=== PATIENT | female | born 2000 | race Caucasian/White ===

== ENCOUNTER 2022-06-08 18:15 | Emergency (ER) | payer MEDICARE, MEDICAID, SELFPAY ==
[2022-06-08 18:58] VITALS: BP 108/60; PULSE 73; RESP 18; TEMP 36.8; O2SAT 99; BMI 31.2
--- OUTSIDE RECORDS SUMMARY | 2022-06-08 21:38 | XMS_ITS | Continuity of Care Document ---
:2002 Author Organization [facility] Address [address] [place] [address]- Care Team Providers Name Role Phone Jerica Romano MD Primary Care Physician Encounter [facility] [place] [place] Date(s): 06/22/20 - 07/22/20 [facility] [address] [place] [address]- Allergies, Adverse Reactions, Alerts Substance Reaction Severity Status amoxicillin diarrhea Active penicillin Active Bee Stings1 Unknown Active Cats Active 1per pt and Mom it is not anaphalactic reaction Medications Aerochamber w/Mask (Large) See Instructions, # 2 each, Maintenance, use with albuterol inhaler, 11/19/18 19:50:11 EDT, Compound Start Date: 11/19/18 Status: Orderedalbuterol CFC free 90 mcg/inh inhalation aerosol 2, puffs, Inhalation, 4 times a day, PRN, May use 2- 6 puffs use with spacer chamber, # 2 each, Refills 0, Tot. Refills 0, Maintenance, 11/19/18 19:49:02 EDT, Aerosol, Print Requisition, Compound Start Date: 11/19/18 Status: OrderedClaritin 10 mg oral tablet 10 mg, 1, tablet, By Mouth, Daily, # 30 tablet, Refills 0, Tot. Refills 0, Maintenance, 12/21/18 13:30:38 EDT, Route to Pharmacy Electronically, [id number], [id number] Start Date: 12/21/18 Stop Date: 01/20/19 Status: Ordereddicyclomine 10 mg oral capsule 1 capsule = 10 mg, By Mouth, 2 times a day, # 60 capsule, 6 Refills, Maintenance, 04/01/20 11:10:00 EDT, Capsule, [id number], 155, cm, 11/18/19 13:05:00 EDT, Height, 102.6, kg, 11/18/19 13:05:00 EDT, Dry Weight Start Date: 04/01/20 Stop Date: 10/28/20 Status: OrderedDulcolax 5 mg oral enteric coated tablet 3 tablet = 15 mg, By Mouth, Once, # 4 tablet, 0 Refills, Soft Stop, 04/01/20 11:11:00 EDT, [facility]/pharmacy #[id number], 155, cm, 11/18/19 13:05:00 EDT, Height, 102.6, kg, 11/18/19 13:05:00 EDT, Dry Weight Start Date: 04/01/20 Status: OrderedFlovent 110 mcg Inhaler HFA 1, puffs, Inhalation, 2 times a day, per mom and pt, Refills 0, Maintenance, 08/29/19 13:13:00 EST, Inhaler Start Date: 08/29/19 Status: OrderedHydrOXYzine = 25 mg, By Mouth, 3 times a day, 0 Refills, Maintenance, 10/10/18 1:47:31 EST Start Date: 10/10/18 Status: Orderedlevothyroxine 125 mcg (0.125 mg) oral tablet 1 tablet = 125 mcg, By Mouth, Daily, daily in AM, 30 mins before eating/drinking, # 30 tablet, 11 Refills, Maintenance, 08/08/19 6:23:00 EST, Tablet, [facility]/pharmacy #[id number], 154.5, cm, 08/05/19 10:15:00 EST, Height, 100, kg, 08/05/19 10:15:00 EST, Dry Weight Start Date: 08/08/19 Status: Orderedmelatonin 3 mg oral tablet 2 tablet = 6 mg, By Mouth, Daily at bedtime, PRN for insomnia, # 60 tablet, 0 Refills, Maintenance, 05/24/18 18:59:44 EDT, Tablet Start Date: 05/24/18 Status: Orderedolanzapine 10 mg oral tablet 10 mg, 1, tablet, By Mouth, Daily, # 30 tablet, Refills 0, Maintenance, 04/04/19 16:06:12 EDT Start Date: 04/04/19 Status: Orderedomeprazole 40 mg oral enteric coated capsule 1 capsule = 40 mg, By Mouth, Daily, # 30 capsule, 4 Refills, Maintenance, 04/27/20 11:15:00 EDT, EC Capsule, [id number], 155, cm, 11/18/19 13:05:00 EDT, Height, 98.2, kg, 04/16/20 14:20:00 EDT,Dry Weight Start Date: 04/27/20 Status: OrderedPrilosec OTC = 40 mg, By Mouth, Daily, 0 Refills, Maintenance, 08/29/19 13:16:00 EST Start Date: 08/29/19 Status: Orderedtestosterone 25 mg/2.5 g (1%) transdermal gel See Instructions, 1.5 packet Topically Daily in AM; apply to clean, dry, intact skin; wash hands thoroughly after application, # 60 each, 6 Refills, Maintenance, 05/27/20 15:07:00 EDT, Gel, [id number], 155, cm, 11/18/19 13:05:00 EDT, Heigh... Start Date: 05/27/20 Status: OrderedTrazodone = 100 mg, By Mouth, Daily at bedtime, 0 Refills, Maintenance, 01/25/19 11:12:55 EDT Start Date: 01/25/19 Status: Ordered Problem List Condition Effective Dates Status Health Status Informant Abdominal pain(Confirmed) Active Acute depression(Confirmed) Active Attention deficit hyperactivity Active disorder, combined type(Confirmed) Autism spectrum disorder(Confirmed) Active Bipolar(Confirmed) Active Bulimia nervosa(Confirmed) Active Gender dysphoria in pediatric Active patient(Confirmed) H/O Hilda thyroiditis(Confirmed) Active Posttraumatic stress Active disorder(Confirmed) Rectal bleed(Confirmed) Active Suicidal intent(Confirmed) Active Transgender(Confirmed) Active Social History Social History Type Response Smoking Status Never (less than 100 in life time); Tobacco user in household: Yes entered on: 04/04/19 Sex Female
--- OUTSIDE RECORDS SUMMARY | 2022-06-08 21:38 | XMS_ITS | Continuity of Care Document ---
:2002 Author Organization [facility] Address [address] [place] [address]- Care Team Providers Name Role Phone Juan Antonio CAO, Jerica Underwood Primary Care Physician Encounter [facility] [place] Date(s): 04/05/22 - 05/05/22 [facility] [address] [place] [address]- Attending Physician: Sana Mena Admitting Physician: Sana Mena Referring Physician: Sana Mena Allergies, Adverse Reactions, Alerts Substance Reaction Severity Status clindamycin Active amoxicillin diarrhea Active penicillin Active Bee Stings1 Unknown Active Cats Active 1per pt and Mom it is not anaphalactic reaction Medications Abilify 2 mg oral tablet 2 mg, 1, tablet, By Mouth, Daily in AM, # 30 tablet, Refills 0, Tot. Refills 0, Maintenance, 03/29/22 8:41:00 EDT, Route to Pharmacy Electronically, [facility]/pharmacy #[id number], Partial fill upon patient request if the prescription is for a schedule II opioid... Start Date: 03/29/22 Status: Orderedacetaminophen 325 mg oral tablet 650 mg, By Mouth, Every 6 hours, PRN, /Headache, # 30 tablet, Refills 0, Tot. Refills 0, Maintenance, Pain , Mild, 03/29/22 8:41:00 EDT, Route to Pharmacy Electronically, [id number], Partial fill upon patient request if the prescription is for... Start Date: 03/29/22 Status: Orderedalbuterol CFC free 90 mcg/inh inhalation aerosol 2, puffs, Inhalation, 4 times a day, PRN, May use 2- 6 puffs use with spacer chamber, # 2 each, Refills 0, Tot. Refills 0, Maintenance, 03/29/22 8:57:00 EDT, Aerosol, Route to Pharmacy Electronically, [id number], [id number] [employer]... Start Date: 03/29/22 Status: OrdereddiphenhydrAMINE 25 mg oral tablet 1 tablet = 25 mg, By Mouth, Every 6 hours, PRN Anxiety, # 120 tablet, 0 Refills, Maintenance, 03/29/22 8:42:00 EDT, Tablet, [id number], Partial fill upon patient request if the prescription is for a schedule II opioid drug., 153, cm, 03/29/22... Start Date: 03/29/22 Status: Orderedlevothyroxine 125 mcg (0.125 mg) oral tablet 1 tablet = 125 mcg, By Mouth, Daily, daily in AM, 30 mins before eating/drinking, # 30 tablet, 11 Refills, Maintenance, 03/29/22 8:58:00 EDT, Tablet, [facility], 153, cm, 03/29/22 4:54:00 EDT, Height, 71.1, kg, 03/17/22 18:52:00 EDT, Dry Weight Start Date: 03/29/22 Status: OrderedLexapro 10 mg oral tablet 0.5 tablet = 5 mg, By Mouth, Daily, # 15 tablet, 0 Refills, Maintenance, 03/29/22 8:42:00 EDT, Tablet, [id number], Partial fill upon patient request if the prescription is for a schedule II opioid drug., 153, cm, 03/29/22 4:54:00 EDT, Height,... Start Date: 03/29/22 Status: Orderedlidocaine 5% topical film See Instructions, PRN Pain , Moderate, Topically Daily remove patches after 12 hours, # 30 patch, 0 Refills, Maintenance, 03/29/22 8:44:00 EDT, Patch, [id number], Partial fill upon patient request if the prescription is for a schedule II opio... Start Date: 03/29/22 Status: Orderedmelatonin 3 mg oral tablet 2 tablet = 6 mg, By Mouth, Daily at bedtime, PRN for insomnia, # 60 tablet, 0 Refills, Maintenance, 03/29/22 8:59:00 EDT, Tablet, [id number], Partial fill upon patient request if the prescription is for a schedule II opioid drug., 153, cm, .. Start Date: 03/29/22 Status: Ordered Problem List Condition Confirmation Course Effective Dates Status Health I nformant Status Abdominal pain Confirmed Active Acute depression Confirmed Active Attention deficit Confirmed Active hyperactivity disorder, combined type Autism spectrum Confirmed Active disorder Bipolar Confirmed Active Bulimia nervosa Confirmed Active Gender dysphoria in Confirmed Active pediatric patient H/O Hilda Confirmed Active thyroiditis Posttraumatic stress Confirmed Active disorder Rectal bleed Confirmed Active Suicidal intent Confirmed Active Transgender Confirmed Active Social History Social History Type Response Tobacco Interested in cessation: No. Yes, Other: patient reports use varies . Sex Female Patient Care team information PersonnelName: Juan Antonio CAO, Jerica Underwood Address: Address: [address] [place] [address] [facility] [place], [place] [address]
--- OUTSIDE RECORDS SUMMARY | 2022-06-08 21:38 | XMS_ITS | Continuity of Care Document ---
:2002 Author Organization [facility] Address [address] [place] [address]- Care Team Providers Name Role Phone Jerica Romano MD Primary Care Physician Encounter [facility] [place] Date(s): 04/16/20 - 04/23/20 [facility] [address] [place] [id number]- [facility] Attending Physician: Tabatha Lord DO Referring Physician: Jerica Romano MD Allergies, Adverse Reactions, Alerts Substance Reaction Severity [...] 12/21/18 13:30:38 EDT, Route to Pharmacy Electronically, [id number], [facility]/pharmacy #[id number] Start Date: 12/21/18 Stop Date: 01/20/19 Status: Ordereddicyclomine 10 mg oral capsule 1 capsule = 10 mg, By Mouth, 2 times a day, # 60 capsule, 6 Refills, Maintenance, 04/01/20 11:10:00 EDT, Capsule, [facility]/pharmacy #[id number], 155, cm, 11/18/19 13:05:00 EDT, Height, 102.6, kg, 11/18/19 13:05:00 EDT, Dry Weight Start Date: 04/01/20 Stop Date: 10/28/20 Status: OrderedDulcolax 5 mg oral enteric coated tablet 3 tablet = 15 mg, By Mouth, Once, # 4 tablet, 0 Refills, Soft Stop, 04/01/20 11:11:00 EDT, [facility]/pharmacy #[id number], 155, cm, 11/18/19 13:05:00 EDT, [...] 11 Refills, Maintenance, 08/08/19 6:23:00 EST, Tablet, [facility]/pharmacy #[id number], 154.5, cm, 08/05/19 10:15:00 EST, [...] mg, By Mouth, Daily, # 30 capsule, 0 Refills, Maintenance, 04/01/20 11:11:00 EDT, EC Capsule, [facility]/pharmacy #[id number], 155, cm, 11/18/19 13:05:00 EDT, Height, 102.6, kg, 11/18/19 13:05:00 EDT, Dry Weight Start Date: 04/01/20 Status: OrderedPrilosec OTC = 40 mg, By Mouth, Daily, 0 Refills, Maintenance, 08/29/19 13:16:00 EST Start Date: 08/29/19 Status: Orderedtestosterone 25 mg/2.5 g (1%) transdermal gel See Instructions, 1 packet Topically Daily in AM; apply to clean, dry, intact skin; wash hands thoroughly after application, # 30 each, 6 Refills, Maintenance, 04/16/20 16:18:00 EDT, Gel, [facility]/pharmacy #[id number], 155, cm, 11/18/19 13:05:00 EDT, Height,... Start Date: 04/16/20 Status: OrderedTrazodone = 100 mg, By Mouth, [...] bleed(Confirmed) Active Suicidal intent(Confirmed) Active Transgender(Confirmed) Active Vital Signs Most recent to oldest [Reference Range]: 1 Weight 98.2 kg (04/16/20 2:20 PM) Pulse Rate [55-90 bpm] 61 bpm (04/16/20 2:20 PM) Blood Pressure [71-110/30-71 mm Hg] 108/78 mm Hg (04/16/20 2:20 PM) Blood pressure sites Arm, right (04/16/20 2:20 PM) Dry Weight 98.2 kg (04/16/20 2:20 PM) Weight Obtained Via Standing scale (04/16/20 2:20 PM) Dry Weight Obtained Via Standing scale (04/16/20 2:20 PM) Social History Social History Type Response Smoking Status Never (less than 100 in life time); Tobacco user in household: Yes entered on: 04/04/19 Sex Female
--- OUTSIDE RECORDS SUMMARY | 2022-06-08 21:38 | XMS_ITS | Continuity of Care Document ---
:2002 Author Organization [facility] Address [address] [place] [address]- Care Team Providers Name Role Phone Jerica Romano MD Primary Care Physician Encounter [facility] [place] Date(s): 03/17/21 - 03/24/21 [facility] [address] [place] [address]- Encounter Diagnosis Asthma exacerbation (Discharge Diagnosis) - 03/18/21 Attending Physician: Jeremías Gonzalez DO Referring Physician: Jerica Romano MD Allergies, [...] 12/21/18 13:30:38 EDT, Route to Pharmacy Electronically, [id number], [facility]/pharmacy #[id number] Start Date: 12/21/18 Stop Date: 01/20/19 Status: Ordereddicyclomine 10 mg oral capsule 1 capsule, By Mouth, 2 times a day, # 60 capsule, 3 Refills, Maintenance, 03/22/21 9:51:00 EDT, [facility] STORE [id number], 154.5, cm, 03/17/21 15:37:00 EDT, Height, 97.3, kg, 12/21/20 16:20:00 EDT, Dry Weight Start Date: 03/22/21 Status: OrderedDulcolax 5 mg oral enteric coated tablet 3 tablet = 15 mg, By Mouth, Once, # 4 tablet, 0 Refills, Soft Stop, 04/01/20 11:11:00 EDT, [facility]/pharmacy #[id number], 155, cm, 11/18/19 13:05:00 EDT, Height, [...] eating/drinking, # 30 tablet, 11 Refills, Maintenance, 12/25/20 14:26:00 EDT, Tablet, [facility]/pharmacy #[id number], 154.5, cm, 12/21/20 16:20:00 EDT, Height, 97.3, kg, 12/21/20 16:20:00 EDT, Dry W... Start Date: 12/25/20 Status: Orderedmelatonin 3 mg oral tablet 2 [...] 14:20:00 EDT,Dry Weight Start Date: 04/27/20 Status: OrderedpredniSONE 10 mg oral tablet See Instructions, 6 tablet By Mouth for 2 days, 5 tabs for 2 days, 4 tabs for 2 days, 3 tabs for 2 days 2 tabs for 2 days one tab for 2 days. with food, # 42 tablet, 0 Refills, Maintenance, 03/17/21 16:26:00 EDT, [id number], Partial fill upo... Start Date: 03/17/21 Status: OrderedPrilosec OTC = 40 mg, By Mouth, Daily, 0 Refills, Maintenance, 08/29/19 13:16:00 EST Start Date: 08/29/19 Status: Orderedtestosterone 25 mg/2.5 g (1%) transdermal gel See Instructions, 2 packet Topically Daily in AM; apply to clean, dry, intact skin; wash hands thoroughly after application, # 60 each, 5 Refills, Maintenance, 12/25/20 14:24:00 EDT, Gel, [id number], 154.5, cm, 12/21/20 16:20:00 EDT, Heigh... Start Date: 12/25/20 Status: OrderedTrazodone = 100 mg, By Mouth, [...] bleed(Confirmed) Active Suicidal intent(Confirmed) Active Transgender(Confirmed) Active Diagnosis Diagnosis Type Effective Dates Health Clinical Infor [facility] Status Service Asthma exacerbation Discharge 03/18/21 Diagnosis Vital Signs Most recent to oldest [Reference Range]: 1 Height 154.5 cm (03/17/21 3:37 PM) Oxygen Saturation [94-100 %] 98 % (03/17/21 3:37 PM) Pulse Rate [55-90 bpm] 102 bpm *H* (03/17/21 3:37 PM) Blood Pressure [71-110/30-71 mm Hg] 120/85 mm Hg *H* (03/17/21 3:37 PM) Respiratory Rate [16-30 br/min] 20 br/min (03/17/21 3:37 PM) Temperature [96.8-100.4 DegF] 97.6 DegF (03/17/21 3:37 PM) Mode of Delivery (Oxygen) Room air (03/17/21 3:37 PM) Blood pressure sites Arm, right (03/17/21 3:37 PM) Temperature Route Temporal (03/17/21 3:37 PM) Social History Social History Type Response Smoking Status Never (less than 100 in life time); Tobacco user in household: Yes entered on: 04/04/19 Sex Female
--- OUTSIDE RECORDS SUMMARY | 2022-06-08 21:38 | XMS_ITS | Continuity of Care Document ---
:2002 Author Organization [facility] Address [address] [place] [address]- Care Team Providers Name Role Phone Jerica Romano MD Primary Care Physician Encounter [facility] [place] Date(s): 12/21/20 - 01/20/21 [facility] [address] [place] [address]- Attending Physician: Admtr, Sana Admitting Physician: Admtr, Ar8 Referring Physician: Admtr, Ar8 Allergies, Adverse Reactions, Alerts Substance Reaction Severity [...] 12/21/18 13:30:38 EDT, Route to Pharmacy Electronically, [id number], [facility]/pharmacy #[id number] Start Date: 12/21/18 Stop Date: 01/20/19 Status: Ordereddicyclomine 10 mg oral capsule 1 capsule = 10 mg, By Mouth, 2 times a day, # 60 capsule, 3 Refills, Maintenance, 11/04/20 7:52:00 EDT, Capsule, [facility]/pharmacy #[id number], 155, cm, 08/26/20 11:33:00 EST, Height, 101.4, kg, 08/26/20 11:38:00EST, Dry Weight Start Date: 11/04/20 Stop Date: 03/04/21 Status: OrderedDulcolax 5 mg oral enteric coated tablet 3 tablet = 15 mg, By Mouth, Once, # 4 tablet, 0 Refills, Soft Stop, 04/01/20 11:11:00 EDT, [facility]/pharmacy #[id number], 155, cm, 11/18/19 13:05:00 EDT, Height, [...] 11 Refills, Maintenance, 12/25/20 14:26:00 EDT, Tablet, [facility]/pharmacy #[id number], 154.5, cm, 12/21/20 16:20:00 EDT, Height, [...]
--- OUTSIDE RECORDS SUMMARY | 2022-06-08 21:38 | XMS_ITS | Continuity of Care Document ---
:2002 Author Organization [facility] Address [address] [place] [address]- Care Team Providers Name Role Phone Jerica Romano MD Primary Care Physician Encounter [facility] [place] [place] Date(s): 01/16/20 - 01/23/20 [facility] [address] [place] [address]- [facility] Attending Physician: Tabatha Lord DO Allergies, Adverse Reactions, Alerts Substance Reaction Severity [...] 12/21/18 13:30:38 EDT, Route to Pharmacy Electronically, [id number], [facility]/pharmacy #[id number] Start Date: 12/21/18 Stop Date: 01/20/19 Status: OrderedFlovent 110 mcg Inhaler HFA 1, puffs, Inhalation, 2 times a day, per mom and pt, Refills 0, Maintenance, 08/29/19 13:13:00 EST, Inhaler Start Date: 08/29/19 Status: OrderedHydrOXYzine = 25 mg, By Mouth, 3 times a day, 0 Refills, Maintenance, 10/10/18 1:47:31 EST Start Date: 10/10/18 Status: OrderedInderal 20 mg oral tablet See Instructions, per Mom this med just started not sure how many MG, but takes 3 times/day, Refills0, Maintenance, 08/29/19 13:14:00 EST, Instructions Replace Required Details Start Date: 08/29/19 Status: Orderedlevothyroxine 125 mcg (0.125 mg) oral tablet 1 tablet = 125 mcg, By Mouth, Daily, daily in AM, 30 mins before eating/drinking, # 30 tablet, 11 Refills, Maintenance, 08/08/19 6:23:00 EST, Tablet, [facility]/pharmacy #[id number], 154.5, cm, 08/05/19 10:15:00 EST, Height, [...] 04/04/19 16:06:12 EDT Start Date: 04/04/19 Status: OrderedPrilosec OTC = 40 mg, By Mouth, Daily, 0 Refills, Maintenance, 08/29/19 13:16:00 EST Start Date: 08/29/19 Status: Orderedtestosterone 25 mg/2.5 g (1%) transdermal gel See Instructions, 1 packet Topically Daily in AM; apply to clean, dry, intact skin; wash hands thoroughly after application, # 30 each, 6 Refills, Maintenance, 08/05/19 11:24:00 EST, Gel, [facility]/pharmacy #[id number], 154.5, cm, 08/05/19 10:15:00 EST, Heigh... Start Date: 08/05/19 Status: OrderedTrazodone = 100 mg, By Mouth, [...] Hilda thyroiditis(Confirmed) Active Posttraumatic stress Active disorder(Confirmed) Suicidal intent(Confirmed) Active Transgender(Confirmed) Active Social History Social History Type Response Smoking Status Never (less than 100 in life time); Tobacco user in household: Yes entered on: 04/04/19 Sex Female
--- OUTSIDE RECORDS SUMMARY | 2022-06-08 21:38 | XMS_ITS | Continuity of Care Document ---
:2002 Author Organization [facility] Address [address] [place] [address]- Care Team Providers Name Role Phone Jerica Romano MD Primary Care Physician [place] [facility] [place]s): 03/01/19 - 07/31/19 [facility] [address] [place] [address] [facility] Attending Physician: Tabatha Lord DO Referring Physician: Jerica Romano MD Allergies, Adverse Reactions, Alerts Substance Reaction Severity Status amoxicillin diarrhea Active penicillin Active Medications Aerochamber w/Mask (Large) See Instructions, # [...] 12/21/18 13:30:38 EDT, Route to Pharmacy Electronically, [id number], [facility]/pharmacy #[id number] Start Date: 12/21/18 Stop Date: 01/20/19 Status: OrderedCymbalta 60 mg oral enteric coated capsule 2 capsule = 120 mg, By Mouth, Daily, 0 Refills, Maintenance, 01/09/19 13:14:30 EDT Start Date: 01/09/19 Status: Orderedethinyl estradiol-levonorgestrel 30 mcg-0.15 mg oral tablet 1 tablet, By Mouth, Daily, # 28 tablet, 11 Refills, Maintenance, 02/14/19 17:03:22 EDT, Tablet, 1 tablet By Mouth Daily,x28 days Start Date: 02/14/19 Stop Date: 01/16/20 Status: OrderedGabapentin = 100 mg, By Mouth, 2 times a day, 0 Refills, Maintenance, 01/25/19 11:12:23 EDT Start Date: 01/25/19 Status: OrderedHydrOXYzine = 25 mg, By Mouth, 3 times a day, 0 Refills, Maintenance, 10/10/18 1:47:31 EST Start Date: 10/10/18 Status: Orderedlevothyroxine 0.1 mg oral tablet 1 tablet = 100 mcg, By Mouth, Daily, daily in AM, 30 minutes before eating or drinking, # 30 tablet,11 Refills, Maintenance, 04/04/19 16:20:19 EDT, Tablet Start Date: 04/04/19 Status: Orderedmelatonin 3 mg oral tablet 2 tablet = 6 mg, By Mouth, Daily at bedtime, PRN for insomnia, # 60 tablet, 0 Refills, Maintenance, 05/24/18 18:59:44 EDT, Tablet Start Date: 05/24/18 Status: Orderedolanzapine 10 mg oral tablet 10 mg, 1, tablet, By Mouth, Daily, # 30 tablet, Refills 0, Maintenance, 04/04/19 16:06:12 EDT Start Date: 04/04/19 Status: OrderedTrazodone = 100 mg, By Mouth, 0 Refills, Maintenance, 01/25/19 11:12:55 EDT Start [...]
--- OUTSIDE RECORDS SUMMARY | 2022-06-08 21:38 | XMS_ITS | Continuity of Care Document ---
:2002 Author Organization [facility] Address [address] [place] [address]- Care Team Providers Name Role Phone Jerica Romano MD Primary Care Physician Encounter [facility] [place] Date(s): 08/05/19 - 08/12/19 [facility] [address] [place] [address] [facility] Attending Physician: Tabatha Lord DO Referring Physician: [...] 12/21/18 13:30:38 EDT, Route to Pharmacy Electronically, [id number], [facility]/pharmacy #[id number] Start Date: 12/21/18 Stop Date: 01/20/19 Status: OrderedCymbalta 60 mg oral enteric coated capsule 2 capsule = 120 mg, By Mouth, Daily, 0 Refills, Maintenance, 01/09/19 13:14:30 EDT Start Date: 01/09/19 Status: OrderedGabapentin = 100 mg, By Mouth, [...] 11 Refills, Maintenance, 08/08/19 6:23:00 EST, Tablet, [facility]/pharmacy #[id number], 154.5, cm, 08/05/19 10:15:00 EST, Height, [...] 04/04/19 16:06:12 EDT Start Date: 04/04/19 Status: Orderedtestosterone 25 mg/2.5 g (1%) transdermal gel See Instructions, 1 packet Topically Daily in AM; apply to clean, dry, intact skin; wash hands thoroughly after application, # 30 each, 6 Refills, Maintenance, 08/05/19 11:24:00 EST, Gel, [facility]/pharmacy #[id number], 154.5, cm, 08/05/19 10:15:00 EST, Heigh... [...] Active disorder(Confirmed) Suicidal intent(Confirmed) Active Transgender(Confirmed) Active Vital Signs Most recent to oldest [Reference Range]: 1 Height 154.5 cm (08/05/19 10:15 AM) Weight 100.0 kg (08/05/19 10:15 AM) Pulse Rate [55-90 bpm] 97 bpm *H* (08/05/19 10:15 AM) Body Mass Index [18.5-24.99] 41.89 *>HHI* (08/05/19 10:15 AM) Blood Pressure [80-130/50-80 mm Hg] 131/78 mm Hg *H* (08/05/19 10:15 AM) Dry Weight 100.0 kg (08/05/19 10:15 AM) Social History Social History Type Response Smoking Status Never (less than 100 in life time); Tobacco user in household: Yes entered on: 04/04/19 Sex Female
--- OUTSIDE RECORDS SUMMARY | 2022-06-08 21:38 | XMS_ITS | Continuity of Care Document ---
:2002 Author Organization [facility] Address [address] [place] [address]- Care Team Providers Name Role Phone Jerica Romano MD Primary Care Physician Encounter [facility] [place] Date(s): 05/01/20 - 05/31/20 [facility] [address] [place] [address]- [facility] Allergies, Adverse Reactions, Alerts Substance Reaction Severity [...] 12/21/18 13:30:38 EDT, Route to Pharmacy Electronically, [id number], [id number] Start Date: 12/21/18 Stop Date: [...] 0 Refills, Soft Stop, 04/01/20 11:11:00 EDT, [facility]/pharmacy #[id number], 155, cm, 11/18/19 13:05:00 EDT, [...] 11 Refills, Maintenance, 08/08/19 6:23:00 EST, Tablet, [facility]/pharmacy #[id number], 154.5, cm, 08/05/19 10:15:00 EST, [...]
--- OUTSIDE RECORDS SUMMARY | 2022-06-08 21:38 | XMS_ITS | Continuity of Care Document ---
:2002 Author Organization [facility] Address [address] [place] [address]- Care Team Providers Name Role Phone Juan Antonio CAO, Jerica Underwood Primary Care Physician [place] [facility] [place] 04/01/20 - 04/08/20 [facility] [address] [place] [address]- [facility] Attending Physician: Jr Bassett MD Allergies, Adverse Reactions, Alerts Substance Reaction [...] 12/21/18 13:30:38 EDT, Route to Pharmacy Electronically, [id number], [facility]/pharmacy #[id number] Start Date: 12/21/18 Stop Date: 01/20/19 Status: Ordereddicyclomine 10 mg oral capsule 1 capsule = 10 mg, By Mouth, 2 times a day, # 60 capsule, 6 Refills, Maintenance, 04/01/20 11:10:00 EDT, Capsule, [facility]/pharmacy #[id number], 155, cm, 11/18/19 13:05:00 EDT, Height, 102.6, kg, 11/18/19 13:05:00 EDT, Dry Weight Start Date: 04/01/20 Stop Date: 10/28/20 Status: OrderedDulcolax 5 mg oral enteric coated tablet 3 tablet = 15 mg, By Mouth, Once, # 4 tablet, 0 Refills, Soft Stop, 04/01/20 11:11:00 EDT, [facility]/pharmacy #[id number], 155, cm, 11/18/19 13:05:00 [...] 11 Refills, Maintenance, 08/08/19 6:23:00 EST, Tablet, [facility]/pharmacy #[id number], 154.5, cm, 08/05/19 10:15:00 [...] Refills, Maintenance, 04/01/20 11:11:00 EDT, EC Capsule, [facility]/pharmacy #[id number], 155, cm, 11/18/19 13:05:00 [...] 6 Refills, Maintenance, 08/05/19 11:24:00 EST, Gel, [facility]/pharmacy #[id number], 154.5, cm, 08/05/19 10:15:00 [...]
--- OUTSIDE RECORDS SUMMARY | 2022-06-08 21:39 | XMS_ITS | Continuity of Care Document ---
:2002 Author Organization [facility] Address [address] [place] [address]- Care Team Providers Name Role Phone Jerica Romano MD Primary Care Physician En[place] [facility] [place] Date(s): 01/16/20 - 02/15/20 [facility] [address] [place] [address]- [facility] Attending Physician: Admtr, [id number] Admitting Physician: Admtr, Ar8 Referring Physician: Admtr, [...] 12/21/18 13:30:38 EDT, Route to Pharmacy Electronically, [id number], [facility]/pharmacy #[id number] Start Date: 12/21/18 [...] 11 Refills, Maintenance, 08/08/19 6:23:00 EST, Tablet, [facility]/pharmacy #[id number], 154.5, cm, 08/05/19 10:15:00 [...] 6 Refills, Maintenance, 08/05/19 11:24:00 EST, Gel, [id number], 154.5, cm, 08/05/19 10:15:00 EST, Heigh... [...]
--- OUTSIDE RECORDS SUMMARY | 2022-06-08 21:39 | XMS_ITS | Continuity of Care Document ---
:2002 Author Organization [facility] Address [address] [place] [address]- Care Team Providers Name Role Phone Juan Antonio CAO, Jerica Underwood Primary Care Physician [place] [facility] [place] [id number] Date(s): 04/28/20 - 05/28/20 [facility] [address] [place] [address]- [facility] Attending Physician: Sana Mena Admitting Physician: Sana Mena Referring Physician: Sana Mena Allergies, Adverse Reactions, Alerts Substance Reaction Severity Status amoxicillin diarrhea Active penicillin Active Cats Active Bee Stings1 Unknown Active 1per pt and Mom it is [...] 12/21/18 13:30:38 EDT, Route to Pharmacy Electronically, [id number], [facility]/pharmacy #[id number] Start Date: 12/21/18 Stop Date: 01/20/19 Status: Ordereddicyclomine 10 mg oral capsule 1 capsule = 10 mg, By Mouth, 2 times a day, # 60 capsule, 6 Refills, Maintenance, 04/01/20 11:10:00 EDT, Capsule, [facility]/pharmacy #[id number], 155, cm, 11/18/19 13:05:00 EDT, Height, 102.6, kg, 11/18/19 13:05:00 EDT, Dry Weight Start Date: 04/01/20 Stop Date: 10/28/20 Status: OrderedDulcolax 5 mg oral enteric coated tablet 3 tablet = 15 mg, By Mouth, Once, # 4 tablet, 0 Refills, Soft Stop, 04/01/20 11:11:00 EDT, [facility]/pharmacy #[id number], 155, cm, 11/18/19 13:05:00 EDT, [...] 11 Refills, Maintenance, 08/08/19 6:23:00 EST, Tablet, [facility]/pharmacy #[id number], 154.5, cm, 08/05/19 10:15:00 EST, [...]
--- OUTSIDE RECORDS SUMMARY | 2022-06-08 21:39 | XMS_ITS | Continuity of Care Document ---
:2002 Author Organization [facility] Address [address] [place] [address]- Care Team Providers Name Role Phone Juan Antonio CAO, Jerica Underwood Primary Care Physician [place] [facility] [place]s): 04/01/20 - 05/01/20 [facility] [address] [place] [address]- [facility] Attending Physician: Admtr, Sana Admitting Physician: Admtr, Ar8 Referring Physician: Admtr, Ar8 Allergies, Adverse Reactions, Alerts Substance Reaction Severity Status Cats Active Bee Stings1 Unknown Active amoxicillin diarrhea Active penicillin Active 1per pt and Mom it is [...] 12/21/18 13:30:38 EDT, Route to Pharmacy Electronically, [id number], [facility]/pharmacy #[id number] Start Date: 12/21/18 Stop Date: 01/20/19 Status: Ordereddicyclomine 10 mg oral capsule 1 capsule = 10 mg, By Mouth, 2 times a day, # 60 capsule, 6 Refills, Maintenance, 04/01/20 11:10:00 EDT, Capsule, [facility]/pharmacy #[id number], 155, cm, 11/18/19 13:05:00 EDT, Height, 102.6, kg, 11/18/19 13:05:00 EDT, Dry Weight Start Date: 04/01/20 Stop Date: 10/28/20 Status: OrderedDulcolax 5 mg oral enteric coated tablet 3 tablet = 15 mg, By Mouth, Once, # 4 tablet, 0 Refills, Soft Stop, 04/01/20 11:11:00 EDT, [facility]/pharmacy #[id number], 155, cm, 11/18/19 13:05:00 EDT, Height, [...] Maintenance, 08/08/19 6:23:00 EST, Tablet, [facility]/pharmacy #[id number], 154.5, cm, 08/05/19 10:15:00 EST, Height, [...] Refills, Maintenance, 04/27/20 11:15:00 EDT, EC Capsule, [facility]/pharmacy #[id number], 155, cm, 11/18/19 13:05:00 EDT, Height, [...] 6 Refills, Maintenance, 04/16/20 16:18:00 EDT, Gel, [facility]/pharmacy #[id number], 155, cm, 11/18/19 13:05:00 EDT, Height,... [...]
--- OUTSIDE RECORDS SUMMARY | 2022-06-08 21:39 | XMS_ITS | Continuity of Care Document ---
:2002 Author Organization [facility] Address [address] [place] [address]- Care Team Providers Name Role Phone Juan Antonio CAO, Jerica Underwood Primary Care Physician Encounter [facility] Date(s): 12/25/20 - 01/24/21 [facility] [address] [place] [address] Attending Physician: AdmSana sorto Admitting Physician: Admtr, Ar8 Referring Physician: Admtr, [...] 12/21/18 13:30:38 EDT, Route to Pharmacy Electronically, [id number], [facility]/pharmacy #[id number] Start Date: 12/21/18 Stop Date: 01/20/19 Status: Ordereddicyclomine 10 mg oral capsule 1 capsule = 10 mg, By Mouth, 2 times a day, # 60 capsule, 3 Refills, Maintenance, 11/04/20 7:52:00 EDT, Capsule, [facility]/pharmacy #[id number], 155, cm, 08/26/20 11:33:00 EST, Height, 101.4, kg, 08/26/20 11:38:00EST, Dry Weight Start Date: 11/04/20 Stop Date: 03/04/21 Status: OrderedDulcolax 5 mg oral enteric coated tablet 3 tablet = 15 mg, By Mouth, Once, # 4 tablet, 0 Refills, Soft Stop, 04/01/20 11:11:00 EDT, [facility]/pharmacy #[id number], 155, cm, 11/18/19 13:05:00 EDT, [...] 11 Refills, Maintenance, 12/25/20 14:26:00 EDT, Tablet, [facility]/pharmacy #[id number], 154.5, cm, 12/21/20 16:20:00 EDT, [...] Refills, Maintenance, 04/27/20 11:15:00 EDT, EC Capsule, [facility]/pharmacy #[id number], 155, cm, 11/18/19 13:05:00 EDT, [...] 5 Refills, Maintenance, 12/25/20 14:24:00 EDT, Gel, [facility]/pharmacy #[id number], 154.5, cm, 12/21/20 16:20:00 EDT, Heigh... [...]
--- OUTSIDE RECORDS SUMMARY | 2022-06-08 21:39 | XMS_ITS | Continuity of Care Document ---
:2002 Author Organization [facility] Address [address] [place] [address]- Care Team Providers Name Role Phone Jerica Romano MD Primary Care Physician Encounter [facility] [place] Date(s): 08/26/20 - 09/25/20 [facility] [address], [place] [address] Attending Physician: Sana Mena Admitting Physician: AdmSana sorto Referring Physician: Admtr, Ar8 Allergies, Adverse Reactions, [...] 12/21/18 13:30:38 EDT, Route to Pharmacy Electronically, [id number], [facility]/pharmacy #[id number] Start Date: 12/21/18 Stop Date: 01/20/19 Status: Ordereddicyclomine 10 mg oral capsule 1 capsule = 10 mg, By Mouth, 2 times a day, # 60 capsule, 6 Refills, Maintenance, 04/01/20 11:10:00 EDT, Capsule, [facility]/pharmacy #[id number], 155, cm, 11/18/19 13:05:00 EDT, Height, 102.6, kg, 11/18/19 13:05:00 EDT, Dry Weight Start Date: 04/01/20 Stop Date: 10/28/20 Status: OrderedDulcolax 5 mg oral enteric coated tablet 3 tablet = 15 mg, By Mouth, Once, # 4 tablet, 0 Refills, Soft Stop, 04/01/20 11:11:00 EDT, [facility]/pharmacy #[id number], 155, cm, 11/18/19 13:05:00 EDT, [...] 11 Refills, Maintenance, 08/08/19 6:23:00 EST, Tablet, [facility]/pharmacy #[id number], 154.5, cm, 08/05/19 10:15:00 EST, [...] Refills, Maintenance, 04/27/20 11:15:00 EDT, EC Capsule, [facility]/pharmacy #[id number], 155, cm, 11/18/19 13:05:00 EDT, [...] 6 Refills, Maintenance, 05/27/20 15:07:00 EDT, Gel, [facility]/pharmacy #[id number], 155, cm, 11/18/19 13:05:00 EDT, Heigh... [...]
--- OUTSIDE RECORDS SUMMARY | 2022-06-08 21:39 | XMS_ITS | Continuity of Care Document ---
:2002 Author Organization [facility] Address [address] [place] [address]- Care Team Providers Name Role Phone Juan Antonio CAO, Jerica Underwood Primary Care Physician Encounter [facility] [place] R [id number] Date(s): 02/02/22 - 05/05/22 [facility] [address] [place] [address]- Attending Physician: Mal Shelton MD Admitting Physician: Mal Shelton MD Allergies, Adverse Reactions, Alerts Substance Reaction Severity Status clindamycin Active amoxicillin diarrhea Active penicillin Active Bee Stings1 Unknown Active Cats Active 1per pt and Mom it is not anaphalactic reaction Medications Abilify 2 mg oral tablet 2 mg, 1, tablet, By Mouth, Daily in AM, # 30 tablet, Refills 0, Tot. Refills 0, Maintenance, 03/29/22 8:41:00 EDT, Route to Pharmacy Electronically, [facility]/pharmacy #[id number], Partial fill upon patient request if the prescription is for a schedule II opioid... Start Date: 03/29/22 Status: Orderedacetaminophen 325 mg oral tablet 650 mg, By Mouth, Every 6 hours, PRN, /Headache, # 30 tablet, Refills 0, Tot. Refills 0, Maintenance, Pain , Mild, 03/29/22 8:41:00 EDT, Route to Pharmacy Electronically, [facility]/pharmacy #[id number], Partial fill upon patient request if the prescription is for... Start Date: 03/29/22 Status: Orderedalbuterol CFC free 90 mcg/inh inhalation aerosol 2, puffs, Inhalation, 4 times a day, PRN, May use 2- 6 puffs use with spacer chamber, # 2 each, Refills 0, Tot. Refills 0, Maintenance, 03/29/22 8:57:00 EDT, Aerosol, Route to Pharmacy Electronically, [id number], [facility]/pharma... Start Date: 03/29/22 Status: OrdereddiphenhydrAMINE 25 mg [...] Juan Antonio CAO, Jerica Underwood Address: Address: [address] [place] [address] [facility] [place], [place] [address]
--- OUTSIDE RECORDS SUMMARY | 2022-06-08 21:39 | XMS_ITS | Continuity of Care Document ---
:2002 Author Organization [facility] Address [address] [place] [address]- Care Team Providers Name Role Phone Jerica Romano MD Primary Care Physician [place] [facility] [place] 07/08/21 - 07/15/21 [facility] [address] [place] [address]- Encounter Diagnosis Right hip pain (Discharge Diagnosis) - 07/08/21 Boil (Discharge Diagnosis) - 07/08/21 Attending Physician: Stefanie Soria MD Referring Physician: Jerica Romano MD Allergies, Adverse Reactions, Alerts Substance Reaction Severity Status clindamycin Active Cats Active amoxicillin diarrhea Active penicillin Active Bee Stings1 Unknown Active 1per pt [...] 12/21/18 13:30:38 EDT, Route to Pharmacy Electronically, [id number], [facility]/pharmacy #[id number] Start Date: 12/21/18 Stop Date: 01/20/19 Status: Ordereddicyclomine 10 mg oral capsule 1 capsule, By Mouth, 2 times a day, # 60 capsule, 3 Refills, Maintenance, 03/22/21 9:51:00 EDT, [id number], 154.5, cm, 03/17/21 15:37:00 EDT, Height, 97.3, kg, 12/21/20 16:20:00 EDT, Dry Weight Start Date: 03/22/21 Status: OrderedDulcolax 5 mg oral enteric coated tablet 3 tablet = 15 mg, By Mouth, Once, # 4 tablet, 0 Refills, Soft Stop, 04/01/20 11:11:00 EDT, [facility]/pharmacy #[id number], 155, cm, 11/18/19 [...] 10/10/18 1:47:31 EST Start Date: 10/10/18 Status: Orderedibuprofen 600 mg oral tablet 600 mg, 1, tablet, By Mouth, 3 times a day, for 30 days, # 90 tablet, Refills 0, Tot. Refills 0, Acute 07/29/21 11:45:00 EST, 06/29/21 11:45:00 EST, Route to Pharmacy Electronically, [facility]/pharmacy #[id number], Partial fill upon patient request if the prescri... Start Date: 06/29/21 Stop Date: 07/29/21 Status: Orderedlevothyroxine 125 mcg (0.125 mg) oral tablet 1 tablet = 125 mcg, By Mouth, Daily, daily in AM, 30 mins before eating/drinking, # 30 tablet, 11 Refills, Maintenance, 12/25/20 14:26:00 EDT, Tablet, [facility]/pharmacy #[id number], 154.5, cm, 12/21/20 16:20:00 EDT, Height, 97.3, kg, 12/21/20 16:20:00 EDT, Dry W... Start Date: 12/25/20 Status: Orderedmelatonin 3 mg oral tablet 2 tablet = 6 mg, By Mouth, Daily at bedtime, PRN for insomnia, # 60 tablet, 0 Refills, Maintenance, 05/24/18 18:59:44 EDT, Tablet Start Date: 05/24/18 Status: Orderedmupirocin 2% topical ointment 1 application, Topically, 3 times a day, for 10 days, # 22 Gm, 0 Refills, Acute 07/18/21 11:03:00 EST, 07/08/21 11:03:00 EST, Ointment, [facility]/pharmacy #[id number], Partial fill upon patient request if the prescription is for a schedule II opioid drug., 1 appl... Start Date: 07/08/21 Stop Date: 07/18/21 Status: Orderedolanzapine 10 mg oral tablet 10 mg, 1, tablet, By Mouth, Daily, # 30 tablet, Refills 0, Maintenance, 04/04/19 16:06:12 EDT Start Date: 04/04/19 Status: Orderedomeprazole 40 mg oral enteric coated capsule 1 capsule = 40 mg, By Mouth, Daily, # 30 capsule, 0 Refills, Maintenance, 06/29/21 12:24:00 EST, EC Capsule, [facility]/pharmacy #[id number], Partial fill upon patient request if the prescription is for a schedule II opioid drug., 158, cm, 06/29/21 12:23:00 EST, H... Start Date: 06/29/21 Status: Orderedomeprazole 40 mg oral enteric coated [...] Active Diagnosis Diagnosis Type Effective Dates Health Status Clinical In formant Service Right hip pain Discharge 07/08/21 Diagnosis Boil Discharge 07/08/21 Diagnosis Vital Signs Most recent to oldest [Reference Range]: 1 Height 158 cm (07/08/21 9:35 AM) Oxygen Saturation [94-100 %] 100 % (07/08/21 9:35 AM) Pulse Rate [55-90 bpm] 125 bpm *H* (07/08/21 9:35 AM) Blood Pressure [90-138/55-84 mm Hg] 125/65 mm Hg (07/08/21 9:35 AM) Respiratory Rate [16-30 br/min] 65 br/min *H* (07/08/21 9:35 AM) Temperature [96.8-100.4 DegF] 98.5 DegF (07/08/21 9:35 AM) Mode of Delivery (Oxygen) Room air (07/08/21 9:35 AM) Blood pressure sites Arm, left (07/08/21 9:35 AM) Temperature Route Temporal (07/08/21 9:35 AM) Social History Social History Type Response Smoking Status Never (less than 100 in life time); Tobacco user in household: Yes entered on: 04/04/19 Sex Female
--- OUTSIDE RECORDS SUMMARY | 2022-06-08 21:39 | XMS_ITS | Continuity of Care Document ---
:2002 Author Organization [facility] Address [address] [place] [address]- Care Team Providers Name Role Phone Jerica Romano MD Primary Care Physician Encounter [facility] [place] Date(s): 03/17/20 - 04/16/20 [facility] [address] [place] [address] Allergies, Adverse Reactions, Alerts Substance Reaction Severity [...] 12/21/18 13:30:38 EDT, Route to Pharmacy Electronically, [id number], [facility]/pharmacy #[id number] Start Date: 12/21/18 Stop Date: 01/20/19 Status: Ordereddicyclomine 10 mg oral capsule 1 capsule = 10 mg, By Mouth, 2 times a day, # 60 capsule, 6 Refills, Maintenance, 04/01/20 11:10:00 EDT, Capsule, [facility]/pharmacy #[id number], 155, cm, 11/18/19 13:05:00 EDT, Height, 102.6, kg, 11/18/19 13:05:00 EDT, Dry Weight Start Date: 04/01/20 Stop Date: 10/28/20 Status: OrderedDulcolax 5 mg oral enteric coated tablet 3 tablet = 15 mg, By Mouth, Once, # 4 tablet, 0 Refills, Soft Stop, 04/01/20 11:11:00 EDT, [facility]/pharmacy #[id number], 155, cm, 11/18/19 13:05:00 EDT, Height, [...] Maintenance, 08/08/19 6:23:00 EST, Tablet, [facility]/pharmacy #[id number], 154.5, cm, 08/05/19 10:15:00 EST, Height, [...] Refills, Maintenance, 04/01/20 11:11:00 EDT, EC Capsule, [id number], 155, cm, [...] Maintenance, 04/16/20 16:18:00 EDT, Gel, [facility]/pharmacy #[id number], 155, cm, 11/18/19 13:05:00 EDT, Height,... [...]
--- OUTSIDE RECORDS SUMMARY | 2022-06-08 21:39 | XMS_ITS | Continuity of Care Document ---
:2002 Author Organization [facility] Address [address] [place] [address]- Care Team Providers Name Role Phone Juan Antonio CAO, Jerica B Primary Care Physician En[place] [facility] [place] Date(s): 12/23/20 - 02/10/[address] [address] Attending Physician: Jr Bassett MD Admitting Physician: Jr Bassett MD Allergies, Adverse Reactions, Alerts Substance Reaction Severity Status clindamycin Active Cats Active Bee Stings1 Unknown Active amoxicillin [...] 12/21/18 13:30:38 EDT, Route to Pharmacy Electronically, [id number], [facility]/pharmacy #[id number] Start Date: 12/21/18 Stop Date: 01/20/19 Status: Ordereddicyclomine 10 mg oral capsule 1 capsule = 10 mg, By Mouth, 2 times a day, # 60 capsule, 3 Refills, Maintenance, 11/04/20 7:52:00 EDT, Capsule, [facility]/pharmacy #[id number], 155, cm, 08/26/20 11:33:00 EST, Height, 101.4, kg, 08/26/20 11:38:00EST, Dry Weight Start Date: 11/04/20 Stop Date: 03/04/21 Status: OrderedDulcolax 5 mg oral enteric coated tablet 3 tablet = 15 mg, By Mouth, Once, # 4 tablet, 0 Refills, Soft Stop, 04/01/20 11:11:00 EDT, [facility]/pharmacy #[id number], 155, cm, 11/18/19 13:05:00 EDT, [...] 11 Refills, Maintenance, 12/25/20 14:26:00 EDT, Tablet, [facility]/pharmacy #[id number], 154.5, cm, 12/21/20 16:20:00 EDT, [...] Refills, Maintenance, 04/27/20 11:15:00 EDT, EC Capsule, [facility]/pharmacy #[id number], 155, cm, 11/18/19 13:05:00 EDT, [...] 5 Refills, Maintenance, 12/25/20 14:24:00 EDT, Gel, [facility]/pharmacy #[id number], 154.5, cm, 12/21/20 16:20:00 EDT, Heigh... [...]
--- OUTSIDE RECORDS SUMMARY | 2022-06-08 21:39 | XMS_ITS | Continuity of Care Document ---
:2002 Author Organization [facility] Address [address] [place] [address]- Care Team Providers Name Role Phone Jerica Romano MD Primary Care Physician Encounter [facility] [place] Date(s): 08/26/20 - 09/02/20 [facility] [address] [place] [address]- Encounter Diagnosis Neck pain (Discharge Diagnosis) - 08/26/20 Attending Physician: Stefanie Soria MD Referring Physician: [...] 12/21/18 13:30:38 EDT, Route to Pharmacy Electronically, [id number], [facility]/pharmacy #[id number] Start Date: 12/21/18 Stop Date: 01/20/19 Status: Ordereddicyclomine 10 mg oral capsule 1 capsule = 10 mg, By Mouth, 2 times a day, # 60 capsule, 6 Refills, Maintenance, 04/01/20 11:10:00 EDT, Capsule, [facility]/pharmacy #[id number], 155, cm, 11/18/19 13:05:00 EDT, Height, 102.6, kg, 11/18/19 13:05:00 EDT, Dry Weight Start Date: 04/01/20 Stop Date: 10/28/20 Status: OrderedDulcolax 5 mg oral enteric coated tablet 3 tablet = 15 mg, By Mouth, Once, # 4 tablet, 0 Refills, Soft Stop, 04/01/20 11:11:00 EDT, [facility]/pharmacy #[id number], 155, cm, 11/18/19 13:05:00 [...] 11 Refills, Maintenance, 08/08/19 6:23:00 EST, Tablet, [facility]/pharmacy #[id number], 154.5, cm, 08/05/19 10:15:00 EST, [...] Refills, Maintenance, 04/27/20 11:15:00 EDT, EC Capsule, [facility]/pharmacy #[id number], 155, cm, 11/18/19 13:05:00 [...] 6 Refills, Maintenance, 05/27/20 15:07:00 EDT, Gel, [facility]/pharmacy #[id number], 155, cm, 11/18/19 13:05:00 EDT, Heigh... [...] Diagnosis Type Effective Dates Health Status Clinical Serv ice Informant Neck pain Discharge 08/26/20 Diagnosis Vital Signs Most recent to oldest [Reference Range]: 1 Height 155 cm (08/26/20 11:33 AM) Weight 101.4 kg (08/26/20 11:33 AM) Oxygen Saturation [94-100 %] 100 % (08/26/20 11:33 AM) Pulse Rate [55-90 bpm] 72 bpm (08/26/20 11:33 AM) Body Mass Index [18.5-24.99] 42.21 *>HHI* (08/26/20 11:33 AM) Blood Pressure [71-110/30-71 mm Hg] 113/59 mm Hg *H* (08/26/20 11:33 AM) Respiratory Rate [16-30 br/min] 16 br/min (08/26/20 11:33 AM) Temperature [96.8-100.4 DegF] 96.9 DegF (08/26/20 11:33 AM) Mode of Delivery (Oxygen) Room air (08/26/20 11:33 AM) Blood pressure sites Arm, right (08/26/20 11:33 AM) Temperature Route Temporal (08/26/20 11:33 AM) Dry Weight 101.4 kg (08/26/20 11:33 AM) Weight Obtained Via Standing scale (08/26/20 11:33 AM) Dry Weight Obtained Via Standing scale (08/26/20 11:33 AM) Social History Social History Type Response Smoking Status Never (less than 100 in life time); Tobacco user in household: Yes entered on: 04/04/19 Sex Female
--- OUTSIDE RECORDS SUMMARY | 2022-06-08 21:39 | XMS_ITS | Continuity of Care Document ---
:2002 Author Organization [facility] Address [address] [place] [address]- Care Team Providers Name Role Phone Jerica Romano MD Primary Care Physician Encounter [facility] Date(s): 06/29/21 - 06/29/[address] [address]- Discharge Disposition: A-D/C Home Attending Physician: Pritesh Mendez MD Admitting Physician: Pritesh Mendez MD Referring Physician: Not on Staff, Referring MD Allergies, Adverse Reactions, Alerts Substance Reaction Severity Status clindamycin Active Bee Stings1 Unknown Active Cats Active amoxicillin diarrhea Active penicillin Active 1per [...] Print Requisition, Compound Start Date: 11/19/18 Status: OrderedBactrim DS 800 mg-160 mg oral tablet 1 tablet, By Mouth, 2 times a day, for 7 days, # 14 tablet, 0 Refills, Acute 07/06/21 11:45:00 EST, 06/29/21 11:45:00 EST, Tablet, [facility]/pharmacy #[id number], Partial fill upon patient request if the prescription is for a schedule II opioid drug., 1 tablet By... Start Date: 06/29/21 Stop Date: 07/06/21 Status: OrderedClaritin 10 mg oral tablet 10 mg, 1, tablet, By Mouth, Daily, # 30 tablet, Refills 0, Tot. Refills 0, Maintenance, 12/21/18 13:30:38 EDT, Route to Pharmacy Electronically, [id number], [facility]/pharmacy #[id number] Start Date: 12/21/18 Stop Date: 01/20/19 Status: Ordereddicyclomine 10 mg oral capsule 1 capsule, By Mouth, 2 times a day, # 60 capsule, 3 Refills, Maintenance, 03/22/21 9:51:00 EDT, [id number], 154.5, cm, 03/17/21 15:37:00 EDT, Height, 97.3, kg, 12/21/20 16:20:00 EDT, Dry Weight Start Date: 03/22/21 Status: OrderedDulcolax 5 mg oral enteric coated tablet 3 tablet = 15 mg, By Mouth, Once, # 4 tablet, 0 Refills, Soft Stop, 04/01/20 11:11:00 EDT, [facility]/pharmacy #[id number], 155, cm, 11/18/19 13:05:00 EDT, Height, [...] 06/29/21 11:45:00 EST, Route to Pharmacy Electronically, [facility]/pharmacy #[id number], Partial fill upon patient request if the prescri... Start Date: 06/29/21 Stop Date: 07/29/21 Status: Orderedlevothyroxine 125 mcg (0.125 mg) oral tablet 1 tablet = 125 mcg, By Mouth, Daily, daily in AM, 30 mins before eating/drinking, # 30 tablet, 11 Refills, Maintenance, 12/25/20 14:26:00 EDT, Tablet, [id number], 154.5, cm, 12/21/20 16:20:00 EDT, Height, [...] Refills, Maintenance, 06/29/21 12:24:00 EST, EC Capsule, [id number], Partial fill upon patient request if [...] 5 Refills, Maintenance, 12/25/20 14:24:00 EDT, Gel, [facility]/pharmacy #[id number], 154.5, cm, 12/21/20 16:20:00 EDT, Heigh... [...] bleed(Confirmed) Active Suicidal intent(Confirmed) Active Transgender(Confirmed) Active Results Radiology Reports Exam Date Time Procedure Performing Provider Status 06/29/21 11:00 AM Knee 1 or 2 Views Right Candy Ernst; Aut h (Verified) Notes:(Knee 1 or 2 Views Right) Reason For Exam: TraumaRESULT: Knee 1 or 2 Views Right Knee 1 or 2 Views Right, 2 views INDICATION: right knee pain x 3 days, no known injury, small area of redness, pt reports swelling. COMPARISON: 2018, 10/30/2013 FINDINGS: No evidence of fracture, dislocation or suspicious bone lesion. Small distal femoral bone island. Bipartite patella. No arthritic changes. No osteochondral defects or intra-articular loose bodies. No evidence of joint effusion. IMPRESSION: No significant osseous abnormality. I have personally reviewed the images and I agree with this report. WSN: [id number] Ordering Physician: Pritesh Mendez Dictated By: Erendira Conner MD Dictated Date/Time: 06/29/21 11:21 a Reviewed By: Jeremiah Roe MD Signed By: Jeremiah Roe MD Signed Date/Time: 06/29/21 11:26 am Transcribed By: ANABELLE Transcribed Date/Time: 06/29/21 11:13 am Vital Signs Most recent to oldest [Reference Range]: 1 2 Height 158 cm 158 cm (06/29/21 12:23 PM) (06/29/21 10:17 AM) Weight 69 kg (06/29/21 10:17 AM) Oxygen Saturation [94-100 %] 98 % 100 % (06/29/21 12:23 PM) (06/29/21 10:17 AM) Pulse Rate [55-90 bpm] 65 bpm 68 bpm (06/29/21 12:23 PM) (06/29/21 10:17 AM) Blood Pressure [90-138/55-84 mm Hg] 94/67 mm Hg 108/ 71 mm Hg (06/29/21 12:23 PM) (06/29/21 10:17 AM) Respiratory Rate [16-30 br/min] 16 br/min 20 br/mi n (06/29/21 12:23 PM) (06/29/21 10:17 AM) Temperature [96.8-100.4 DegF] 97.5 DegF 98 DegF (06/29/21 12:23 PM) (06/29/21 10:17 AM) Mode of Delivery (Oxygen) Room air Room air (06/29/21 12:23 PM) (06/29/21 10:17 AM) Blood pressure sites Arm, left Arm, left (06/29/21 12:23 PM) (06/29/21 10:17 AM) Temperature Route Oral Oral (06/29/21 12:23 PM) (06/29/21 10:17 AM) Dry Weight 69 kg (06/29/21 10:17 AM) Weight Obtained Via Patient/family stated (06/29/21 10:17 AM) Social History Social History Type Response Smoking Status Never (less than 100 in life time); Tobacco user in household: Yes entered on: 04/04/19 Sex Female
--- OUTSIDE RECORDS SUMMARY | 2022-06-08 21:39 | XMS_ITS | Continuity of Care Document ---
:2002 Author Organization [facility] Address [address] [place] [address]- Care Team Providers Name Role Phone Juan Antonio CAO, Jerica Underwood Primary Care Physician [place] [facility] [place](s): 08/11/20 - 09/10/20 [facility] [address] [place] [address] Allergies, Adverse Reactions, Alerts Substance Reaction Severity [...] 12/21/18 13:30:38 EDT, Route to Pharmacy Electronically, [id number], [id number] Start Date: 12/21/18 Stop Date: [...] 0 Refills, Soft Stop, 04/01/20 11:11:00 EDT, [facility]/pharmacy #[id number], 155, cm, 11/18/19 13:05:00 [...] 11 Refills, Maintenance, 08/08/19 6:23:00 EST, Tablet, [facility]/pharmacy #[id number], 154.5, cm, 08/05/19 [...]
--- OUTSIDE RECORDS SUMMARY | 2022-06-08 21:39 | XMS_ITS | Continuity of Care Document ---
:2002 Author Organization [facility] Address [address] [place] [address]- Care Team Providers Name Role Phone Juan Antonio CAO, Jerica Underwood Primary Care Physician En[place] [facility] [place] Date(s): 02/01/22 - 03/03/22 [facility] [address] [place] [address]- Allergies, Adverse Reactions, Alerts Substance Reaction Severity [...] 12/21/18 13:30:38 EDT, Route to Pharmacy Electronically, [id number], [facility]/pharmacy #[id number] Start Date: 12/21/18 Stop Date: 01/20/19 Status: Ordereddicyclomine 10 mg oral capsule 1 capsule, By Mouth, 2 times a day, # 60 capsule, 3 Refills, Maintenance, 03/22/21 9:51:00 EDT, [id number], 154.5, cm, 03/17/21 15:37:00 EDT, Height, 97.3, kg, 12/21/20 16:20:00 EDT, Dry Weight Start Date: 03/22/21 Status: OrderedDulcolax 5 mg oral enteric coated tablet 3 tablet = 15 mg, By Mouth, Once, # 4 tablet, 0 Refills, Soft Stop, 04/01/20 11:11:00 EDT, [facility]/pharmacy #[id number], 155, cm, 11/18/19 13:05:00 EDT, Height, [...] eating/drinking, # 30 tablet, 11 Refills, Maintenance, 02/02/22 13:46:00 EDT, Tablet, [facility]/pharmacy #[id number], 158, cm, 07/08/21 9:35:00 EST,Height, 69, kg, 06/29/21 10:17:00 EST, Dry Weight Start Date: 02/02/22 Status: Orderedmelatonin 3 mg oral tablet 2 [...]
--- OUTSIDE RECORDS SUMMARY | 2022-06-08 21:39 | XMS_ITS | Continuity of Care Document ---
:2002 Author Organization [facility] Address [address] [place] [address]- Care Team Providers Name Role Phone Jerica Romano MD Primary Care Physician [place] [facility] [place]s): 05/29/20 - 06/05/20 [facility] [address] [place] [address]- [facility] Encounter Diagnosis Desir's cyst (Discharge Diagnosis) - 05/29/20 Attending Physician: Stefanie Soria MD Referring Physician: [...] 12/21/18 13:30:38 EDT, Route to Pharmacy Electronically, [id number], [facility]/pharmacy #[id number] Start Date: 12/21/18 Stop Date: 01/20/19 Status: Ordereddicyclomine 10 mg oral capsule 1 capsule = 10 mg, By Mouth, 2 times a day, # 60 capsule, 6 Refills, Maintenance, 04/01/20 11:10:00 EDT, Capsule, [facility]/pharmacy #[id number], 155, cm, 11/18/19 13:05:00 EDT, Height, 102.6, kg, 11/18/19 13:05:00 EDT, Dry Weight Start Date: 04/01/20 Stop Date: 10/28/20 Status: OrderedDulcolax 5 mg oral enteric coated tablet 3 tablet = 15 mg, By Mouth, Once, # 4 tablet, 0 Refills, Soft Stop, 04/01/20 11:11:00 EDT, [facility]/pharmacy #[id number], 155, cm, 11/18/19 13:05:00 [...] 11 Refills, Maintenance, 08/08/19 6:23:00 EST, Tablet, [facility]/pharmacy #[id number], 154.5, cm, 08/05/19 10:15:00 [...] Refills, Maintenance, 04/27/20 11:15:00 EDT, EC Capsule, [facility]/pharmacy #[id number], 155, cm, 11/18/19 13:05:00 [...] 6 Refills, Maintenance, 05/27/20 15:07:00 EDT, Gel, [facility]/pharmacy #[id number], 155, cm, 11/18/19 13:05:00 [...] Dates Health Status Clinical In formant Service Desir's cyst Discharge 05/29/20 Diagnosis Vital Signs Most recent to oldest [Reference Range]: 1 Height 155 cm (05/29/20 4:34 PM) Oxygen Saturation [94-100 %] 98 % (05/29/20 4:34 PM) Pulse Rate [55-90 bpm] 91 bpm *H* (05/29/20 4:34 PM) Blood Pressure [71-110/30-71 mm Hg] 126/56 mm Hg *H* (05/29/20 4:34 PM) Respiratory Rate [16-30 br/min] 23 br/min (05/29/20 4:34 PM) Temperature [96.8-100.4 DegF] 98.0 DegF (05/29/20 4:34 PM) Mode of Delivery (Oxygen) Room air (05/29/20 4:34 PM) Blood pressure sites Arm, left (05/29/20 4:34 PM) Temperature Route Temporal (05/29/20 4:34 PM) Social History Social History Type Response Smoking Status Never (less than 100 in life time); Tobacco user in household: Yes entered on: 04/04/19 Sex Female
--- OUTSIDE RECORDS SUMMARY | 2022-06-08 21:39 | XMS_ITS | Continuity of Care Document ---
:2002 Author Organization [facility] Address [address] [place] [address]- Care Team Providers Name Role Phone Juan Antonio CAO, Jerica Underwood Primary Care Physician [place] [facility] [place] Date(s): 09/03/19 - 11/09/19 [facility] [address] [place] [address]- [facility] Attending Physician: Jr Bassett MD Allergies, [...] 12/21/18 13:30:38 EDT, Route to Pharmacy Electronically, [id number], [facility]/pharmacy #[id number] Start Date: [...] Refills, Maintenance, 08/08/19 6:23:00 EST, Tablet, [facility]/pharmacy #[id number], 154.5, cm, 08/05/19 10:15:00 EST, Height, [...] 6 Refills, Maintenance, 08/05/19 11:24:00 EST, Gel, [facility]/pharmacy #[id number], 154.5, cm, 08/05/19 10:15:00 Julio MO.César. Start Date: 08/05/19 Status: OrderedTrazodone = 100 [...]
--- OUTSIDE RECORDS SUMMARY | 2022-06-08 21:39 | XMS_ITS | Continuity of Care Document ---
:2002 Author Organization [facility] Address [address] [place] [address]- Care Team Providers Name Role Phone Juan Antonio CAO, Jerica Underwood Primary Care Physician Encounter [facility] [place] Date(s): 03/17/21 - 04/16/21 [facility] [address] [place], [place] [address] Attending Physician: Sana Mena Admitting Physician: Admtr, [id number] Referring Physician: Admtr, Ar8 Allergies, Adverse Reactions, Alerts Substance Reaction Severity Status clindamycin Active penicillin Active Cats Active amoxicillin diarrhea Active Bee Stings1 Unknown Active 1per pt [...] 12/21/18 13:30:38 EDT, Route to Pharmacy Electronically, [id number], [facility]/pharmacy #[id number] Start Date: 12/21/18 Stop Date: 01/20/19 Status: Ordereddicyclomine 10 mg oral capsule 1 capsule, By Mouth, 2 times a day, # 60 capsule, 3 Refills, Maintenance, 03/22/21 9:51:00 EDT, [facility], 154.5, cm, 03/17/21 15:37:00 EDT, Height, 97.3, kg, 12/21/20 16:20:00 EDT, Dry Weight Start Date: 03/22/21 Status: OrderedDulcolax 5 mg oral enteric coated tablet 3 tablet = 15 mg, By Mouth, Once, # 4 tablet, 0 Refills, Soft Stop, 04/01/20 11:11:00 EDT, [facility]/pharmacy #[id number], 155, cm, 11/18/19 13:05:00 EDT, [...] 11 Refills, Maintenance, 12/25/20 14:26:00 EDT, Tablet, [facility]/pharmacy #[id number], 154.5, cm, 12/21/20 16:20:00 EDT, [...]
--- OUTSIDE RECORDS SUMMARY | 2022-06-08 21:39 | XMS_ITS | Continuity of Care Document ---
:2002 Author Organization [facility] Address [address] [place] [address]- Care Team Providers Name Role Phone Jerica Romano MD Primary Care Physician [place] [facility] [place](s): 08/05/19 - 08/05/[address] [address]- [facility] Attending Physician: Jerica Romano MD Allergies, Adverse Reactions, [...] 12/21/18 13:30:38 EDT, Route to Pharmacy Electronically, [id number], [facility]/pharmacy #[id number] Start Date: 12/21/18 Stop Date: 01/20/19 [...] 6 Refills, Maintenance, 08/05/19 11:24:00 EST, Gel, [facility]/pharmacy #[id number], 154.5, cm, 08/05/19 10:15:00 EST, Heigh... [...]
--- OUTSIDE RECORDS SUMMARY | 2022-06-08 21:39 | XMS_ITS | Continuity of Care Document ---
:2002 Author Organization [facility] Address [address] [place] [address]- Care Team Providers Name Role Phone Jerica Romano MD Primary Care Physician Encounter [facility] [place] Date(s): 11/28/20 - 11/28/[address] [address]- Encounter Diagnosis Hand contusion (Final) - 11/28/20 Discharge Disposition: A-D/C Home Attending Physician: Swapna Francis DO Admitting Physician: Swapna Francis DO Referring Physician: Not on Staff, Referring MD [...] 12/21/18 13:30:38 EDT, Route to Pharmacy Electronically, [id number], [facility]/pharmacy #[id number] Start Date: 12/21/18 Stop Date: 01/20/19 Status: Ordereddicyclomine 10 mg oral capsule 1 capsule = 10 mg, By Mouth, 2 times a day, # 60 capsule, 3 Refills, Maintenance, 11/04/20 7:52:00 EDT, Capsule, [facility]/pharmacy #[id number], 155, cm, 08/26/20 11:33:00 EST, Height, 101.4, kg, 08/26/20 11:38:00EST, Dry Weight Start Date: 11/04/20 Stop Date: 03/04/21 Status: OrderedDulcolax 5 mg oral enteric coated tablet 3 tablet = 15 mg, By Mouth, Once, # 4 tablet, 0 Refills, Soft Stop, 04/01/20 11:11:00 EDT, [id number], 155, cm, 11/18/19 13:05:00 EDT, [...] 11 Refills, Maintenance, 08/08/19 6:23:00 EST, Tablet, [id number], 154.5, cm, 08/05/19 10:15:00 EST, Height, [...] Refills, Maintenance, 04/27/20 11:15:00 EDT, EC Capsule, [facility]/pharmacy #[id number], 155, cm, 11/18/19 13:05:00 [...] Exam Date Time Procedure Performing Provider Status 11/28/20 6:09 PM Hand Min 3 Views Right Elizabeth Vazquez (Verified) Notes:(Hand Min 3 Views Right) Reason For Exam: TraumaRESULT: Hand Min 3 Views Right Examination: Right hand performed on 11/28/2020. History: Hx of Present Illness: right hand pain - pt sts I punched a wall earlier . 7 10; Reason: Trauma; Clinical Question(s): Fracture Findings: Frontal, oblique, and lateral views of the right hand are compared to a prior study dated 03/30/2019. No fractures or dislocations are demonstrated. The soft tissues are unremarkable. IMPRESSION: There is no acute osseous abnormality. WSN: [id number] Ordering Physician: Radha Elizondo Dictated By: Addie Chairez MD Dictated Date/Time: 11/28/20 6:13 pm Reviewed By: Addie Chairez MD Signed By: Addie Chairez MD Signed Date/Time: 11/28/20 6:13 pm Transcribed By: ANABELLE Transcribed Date/Time: 11/28/20 6:12 pm Vital Signs Most recent to oldest [Reference Range]: 1 2 Oxygen Saturation [94-100 %] 96 % 98 % (11/28/20 6:06 PM) (11/28/20 5:30 PM) Pulse Rate [55-90 bpm] 69 bpm 75 bpm (11/28/20 6:06 PM) (11/28/20 5:30 PM) Blood Pressure [71-110/30-71 mm Hg] 120/44 mm Hg *H* (11/28/20 6:06 PM) Respiratory Rate [16-30 br/min] 16 br/min (11/28/20 6:06 PM) Temperature [96.8-100.4 DegF] 98.5 DegF (11/28/20 6:06 PM) Mode of Delivery (Oxygen) Room air (11/28/20 6:06 PM) Blood pressure sites Arm, left (11/28/20 6:06 PM) Temperature Route Oral (11/28/20 6:06 PM) Social History Social History Type Response Smoking Status Never (less than 100 in life time); Tobacco user in household: Yes entered on: 04/04/19 Sex Female
--- OUTSIDE RECORDS SUMMARY | 2022-06-08 21:39 | XMS_ITS | Continuity of Care Document ---
:2002 Author Organization [facility] Address [address] [place] [address]- Care Team Providers Name Role Phone Jerica Romano MD Primary Care Physician Encounter [facility] [place] Date(s): 10/07/19 - 10/14/19 [facility] [address] [place] [address]- [facility] Attending Physician: Tabatha Lord DO [...] 12/21/18 13:30:38 EDT, Route to Pharmacy Electronically, [id number], [facility]/pharmacy #[id number] Start Date: 12/21/18 Stop Date: [...] Refills, Maintenance, 08/08/19 6:23:00 EST, Tablet, [facility]/pharmacy #[id number], 154.5, cm, 08/05/19 10:15:00 EST, [...] 11:24:00 EST, Gel, [id number], 154.5, cm, 12/30/19 10:15:00 EST, Heigh... Start Date: 08/05/19 Status: [...] to oldest [Reference Range]: 1 2 Height 154.6 cm 154.6 cm (10/07/19 1:38 PM) (10/07/19 10:12 AM) Weight 99.2 kg 99.2 kg (10/07/19 1:38 PM) (10/07/19 10:12 AM) Pulse Rate [55-90 bpm] 93 bpm *H* (10/07/19 10:12 AM) Body Mass Index [18.5-24.99] 41.5 *>HHI* (10/07/19 10:12 AM) Blood Pressure [80-130/50-80 mm Hg] 113/59 mm Hg (10/07/19 10:12 AM) Dry Weight 99.2 kg (10/07/19 10:12 AM) Social History Social History Type Response Smoking Status Never (less than 100 in life time); Tobacco user in household: Yes entered on: 04/04/19 Sex Female
--- OUTSIDE RECORDS SUMMARY | 2022-06-08 21:39 | XMS_ITS | Continuity of Care Document ---
:2002 Author Organization [facility] Address [address] [place] [address]- Care Team Providers Name Role Phone Jerica Romano MD Primary Care Physician En[place] [facility] [place] Date(s): 04/01/22 - 04/01/[address] [address]- Discharge Disposition: A-D/C Home Attending Physician: Hilton Vega MD Admitting Physician: Hilton Vega MD Referring Physician: Not on Staff, Referring [...] 03/29/22 8:41:00 EDT, Route to Pharmacy Electronically, [facility]/pharmacy #[id number], Partial fill upon patient [...] 8:57:00 EDT, Aerosol, Route to Pharmacy Electronically, [id number], [facility] Start Date: 03/29/22 Status: OrdereddiphenhydrAMINE 25 mg [...] a schedule II opioid drug., 153, cm, Start Date: 03/29/22 Status: Ordered Problem List Condition Effective Dates [...] Most recent to oldest [Reference Range]: 1 Oxygen Saturation [94-100 %] 100 % (04/01/22 9:03 AM) Pulse Rate [55-90 bpm] 80 bpm (04/01/22 9:03 AM) Blood Pressure [90-138/55-84 mm Hg] 115/76 mm Hg (04/01/22 9:03 AM) Respiratory Rate [16-30 br/min] 18 br/min (04/01/22 9:03 AM) Temperature [96.8-100.4 DegF] 98.3 DegF (04/01/22 9:03 AM) Mode of Delivery (Oxygen) Room air (04/01/22 9:03 AM) Social History Social History Type Response Tobacco Interested in cessation: No. Yes, Other: patient reports use varies . Sex Female Care Team PersonnelName: Juan Antonio CAO, Jerica Underwood Address: [address] [place] [address] [facility] [address]
--- OUTSIDE RECORDS SUMMARY | 2022-06-08 21:39 | XMS_ITS | Continuity of Care Document ---
:2002 Author Organization [facility] Address [address] [place] [address]- Care Team Providers Name Role Phone Juan Antonio CAO, Jerica Underwood Primary Care Physician [place] [facility] [place] Date(s): 05/01/20 - 05/31/20 [facility] [address] [place] [address]- [facility] Allergies, Adverse Reactions, Alerts Substance Reaction Severity Status Cats Active amoxicillin diarrhea Active penicillin Active [...] 12/21/18 13:30:38 EDT, Route to Pharmacy Electronically, [id number], [facility]/pharmacy #[id number] Start Date: 12/21/18 Stop Date: [...] 0 Refills, Soft Stop, 04/01/20 11:11:00 EDT, [facility]/pharmacy #[id number], 155, cm, 11/18/19 13:05:00 EDT, [...] 11 Refills, Maintenance, 08/08/19 6:23:00 EST, Tablet, [facility]/pharmacy #[id number], 154.5, cm, 08/05/19 10:15:00 EST, [...]
--- OUTSIDE RECORDS SUMMARY | 2022-06-08 21:39 | XMS_ITS | Continuity of Care Document ---
:2002 Author Organization [facility] Address [address] [place] [address]- Care Team Providers Name Role Phone Jerica Romano MD Primary Care Physician [place] [facility] [place]16/20 [facility] [address] [place] [address]- [facility] Attending Physician: Admtr, Darrius8 Admitting Physician: Admtr, [...] 12/21/18 13:30:38 EDT, Route to Pharmacy Electronically, [id number], [facility]/pharmacy #[id number] Start Date: 12/21/18 Stop Date: 01/20/19 Status: Ordereddicyclomine 10 mg oral capsule 1 capsule = 10 mg, By Mouth, 2 times a day, # 60 capsule, 6 Refills, Maintenance, 04/01/20 11:10:00 EDT, Capsule, [facility]/pharmacy #[id number], 155, cm, 11/18/19 13:05:00 EDT, Height, 102.6, kg, 11/18/19 13:05:00 EDT, Dry Weight Start Date: 04/01/20 Stop Date: 10/28/20 Status: OrderedDulcolax 5 mg oral enteric coated tablet 3 tablet = 15 mg, By Mouth, Once, # 4 tablet, 0 Refills, Soft Stop, 04/01/20 11:11:00 EDT, [facility]/pharmacy #[id number], 155, cm, 11/18/19 13:05:00 EDT, Height, [...] 11 Refills, Maintenance, 08/08/19 6:23:00 EST, Tablet, [facility]/pharmacy #[id number], 154.5, cm, 08/05/19 10:15:00 EST, Height, [...] Refills, Maintenance, 04/27/20 11:15:00 EDT, EC Capsule, [facility]/pharmacy #[id number], 155, cm, 11/18/19 13:05:00 EDT, Height, [...] 6 Refills, Maintenance, 04/16/20 16:18:00 EDT, Gel, [facility]/pharmacy #[id number], 155, cm, 11/18/19 13:05:00 EDT, Height,... [...]
--- OUTSIDE RECORDS SUMMARY | 2022-06-08 21:39 | XMS_ITS | Continuity of Care Document ---
:2000 Author Organization [employer] Address [address] [place] [id number]- Care Team Providers Name Role Phone Juan Antonio CAO, Jerica Underwood Primary Care Physician [place] [facility] [place]18/[address] [address]- [facility] Discharge Disposition: A-D/C Home Attending Physician: Mir Heaton MD Admitting Physician: Mir Heaton MD Referring Physician: Not on Staff, Referring [...] 12/21/18 13:30:38 EDT, Route to Pharmacy Electronically, [id number], [facility]/pharmacy #[id number] Start Date: 12/21/18 Stop Date: [...] 11 Refills, Maintenance, 08/08/19 6:23:00 EST, Tablet, [facility]/pharmacy #[id number], 154.5, cm, 08/05/19 10:15:00 EST, Height, 100, kg, 08/05/19 10:15:00 EST, Dry Weight Start Date: 08/08/19 Status: Orderedlidocaine 4% topical film 1 patch, Topically, 2 times a day, for 5 days, # 10 each, 0 Refills, Acute 11/23/19 15:21:00 EDT, 11/18/19 15:21:00 EDT, Film, [facility]/pharmacy #[id number], 1 patch Topically 2 times a day,x5 days, 155, cm, 11/18/19 13:05:00 EDT, Height, 102.6, kg, 11/18/19 13:... Start Date: 11/18/19 Stop Date: 11/23/19 Status: Orderedmelatonin 3 mg oral tablet 2 [...] to oldest [Reference Range]: 1 2 Height 155 cm (11/18/19 1:05 PM) Weight 102.6 kg (11/18/19 1:05 PM) Oxygen Saturation [94-100 %] 100 % 99 % (11/18/19 3:37 PM) (11/18/19 1:05 PM) Pulse Rate [55-90 bpm] 76 bpm 88 bpm (11/18/19 3:37 PM) (11/18/19 1:05 PM) Body Mass Index [18.5-24.99] 42.71 *>HHI* (11/18/19 1:05 PM) Blood Pressure [80-130/50-80 mm Hg] 105/64 mm Hg 130/ 62 mm Hg (11/18/19 3:37 PM) (11/18/19 1:05 PM) Respiratory Rate [16-30 br/min] 20 br/min 18 br/mi n (11/18/19 3:37 PM) (11/18/19 1:05 PM) Temperature [96.8-100.4 DegF] 98.3 DegF 98.5 DegF (11/18/19 3:37 PM) (11/18/19 1:05 PM) Mode of Delivery (Oxygen) Room air Room air (11/18/19 3:37 PM) (11/18/19 1:05 PM) Blood pressure sites Arm, left Arm, left (11/18/19 3:37 PM) (11/18/19 1:05 PM) Temperature Route Oral Oral (11/18/19 3:37 PM) (11/18/19 1:05 PM) Dry Weight 102.6 kg (11/18/19 1:05 PM) Weight Obtained Via Standing scale (11/18/19 1:05 PM) Dry Weight Obtained Via Standing scale (11/18/19 1:05 PM) Social History Social History Type Response Smoking Status Never (less than 100 in life time); Tobacco user in household: Yes entered on: 04/04/19 Sex Female
--- OUTSIDE RECORDS SUMMARY | 2022-06-08 21:39 | XMS_ITS | Continuity of Care Document ---
:2000 Author Organization [facility] Address [address] [place] [address]- Care Team Providers Name Role Phone Jerica Romano MD Primary Care Physician [place] [facility] [place] [facility] [address], [place] [address] Attending Physician: Sana Mena Admitting Physician: AdmSana [...] 12/21/18 13:30:38 EDT, Route to Pharmacy Electronically, [id number], [facility]/pharmacy #[id number] Start Date: 12/21/18 Stop Date: 01/20/19 Status: Ordereddicyclomine 10 mg oral capsule 1 capsule, By Mouth, 2 times a day, # 60 capsule, 3 Refills, Maintenance, 03/22/21 9:51:00 EDT, [id number], 154.5, cm, 03/17/21 15:37:00 EDT, Height, 97.3, [...] 11 Refills, Maintenance, 12/25/20 14:26:00 EDT, Tablet, [facility]/pharmacy #[id number], 154.5, cm, 12/21/20 16:20:00 EDT, Height, [...]
--- OUTSIDE RECORDS SUMMARY | 2022-06-08 21:39 | XMS_ITS | Continuity of Care Document ---
:2000 Author Organization [facility] Address [address] [place] [address]- Care Team Providers Name Role Phone Juan Antonio CAO, Jerica Underwood Primary Care Physician Encounter [facility] [place] Date(s): 10/10/19 - 10/20/19 [facility] [address] [place] [address]- [facility] Attending Physician: Admtr, Ar8 Admitting Physician: Admtr, Ar8 Referring Physician: Admtr, [...] 12/21/18 13:30:38 EDT, Route to Pharmacy Electronically, [id number], [facility]/pharmacy #[id number] Start Date: 12/21/18 Stop Date: [...] 11 Refills, Maintenance, 08/08/19 6:23:00 EST, Tablet, [facility]/pharmacy #[id number], 154.5, cm, 08/05/19 10:15:00 EST, [...]
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
[2022-06-08 22:18] VITALS: BP 117/75; PULSE 69; RESP 18; TEMP 36.7; O2SAT 99
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
[2022-06-08] MEDS: cefTRIAXone sodium 500 MG, Lidocaine HCl 1 % MPF 1 ML IM (23:37)
[2022-06-08 23:57] LABS: HIV AB/AG Nonreactive (Nonreactive); HIV Num 1 0.08 S/CO (0.00-0.99); ~HepC Num1 0.21 S/CO (0.00-0.79); ~Hepatitis C Antibody Nonreactive (Nonreactive)
[2022-06-09 00:04] VITALS: BP 121/76; PULSE 76; RESP 18; TEMP 37.1; O2SAT 96
[2022-06-09 00:17] LABS: Appearance Urine Clear; Color Urine Yellow; Glucose Urine UA Negative (Negative); Leukocyte Esterase Urine Negative (Negative); Nitrite Urine Negative (Negative); PH 6.5 (5.0-9.0); Specific Gravity - Urine 1.015 (1.005-1.025); UMIC TRIGGER UACC YES; Urine Blood Moderate (2+) (Negative); Urine Ketones Negative (Negative); Urine Protein Negative (Neg-Trace)
[2022-06-09 00:19] LABS: UPreg QC Valid YES; Urine Pregnancy NEGATIVE (NEGATIVE)
[2022-06-09 00:29] LABS: Bacteria Urine None Seen (None Seen); Hyaline Casts Urine 0-2 /LPF (0-2); RBC Urine 0-2 /HPF (0-2); Squamous Epithelial Cell Urine 0-2 /HPF (0-2); WBC Urine 0-5 /HPF (0-5)
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
[2022-06-09 01:55] LABS: CT PCR NOT DETECTED (Not Detect.); NG PCR NOT DETECTED (Not Detect.)
== END 2022-06-09 01:10 | disposition home or self-care (01) ==
PROVIDERS: Emergency Provider Student in an Organized Health Care Education/Training Program; PCP Pediatrics
DX: T76.21XA Adult sexual abuse, suspected, initial encounter (principal); Y92.9 Unspecified place or not applicable; Z20.2 Contact with and (suspected) exposure to infections with a predominantly sexual mode of transmission; Z79.899 Other long term (current) drug therapy
CPT/HCPCS: 36415; 81001; 81025; 86803; 87389; 87491; 87591; 96372; 99283; 99284; J0696

== ENCOUNTER 2025-07-03 17:08 | Inpatient (IN) | payer MEDICARE, SELFPAY ==
--- NOTE | ~2025-07-03 | XR_ITS ---
CLINICAL HISTORY: bruise 2 views right knee Comparison: None Findings: No fractures or dislocations. No joint effusion. No significant arthritic change. No radiopaque foreign body. Impression: 1. Normal right knee 2 views left knee Comparison: None Findings: No fractures or dislocations. No joint effusion. No significant arthritic change. No radiopaque foreign body. Impression: 1. Normal left knee This document has been electronically signed by: Gabriel Umaña MD on 07/05/2025 17:46:01
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
--- NOTE | ~2025-07-03 | XR_ITS ---
CLINICAL HISTORY: ? bruise 3 views right ankle Comparison: None Findings: No fractures or dislocations. No joint effusion. No significant arthritic change. No radiopaque foreign body. Impression: 1. Normal right ankle 3 views left ankle Comparison: None Findings: No fractures or dislocations. No joint effusion. No significant arthritic change. No radiopaque foreign body. Impression: 1. Normal left ankle This document has been electronically signed by: Gabriel Umaña MD on 07/05/2025 17:48:11
--- NOTE | ~2025-07-03 | XR_ITS ---
CLINICAL HISTORY: Restraint, report left elbow pain 2 views right elbow Comparison: None Findings: No fractures or dislocations. No joint effusion. No significant arthritic change. No radiopaque foreign body. Impression: 1. Normal right elbow 2 views left elbow Comparison: None Findings: No fractures or dislocations. No joint effusion. No significant arthritic change. No radiopaque foreign body. Impression: 1. Normal left elbow This document has been electronically signed by: Gabriel Umaña MD on 07/05/2025 17:46:29
--- NOTE | ~2025-07-03 | CT_ITS ---
CLINICAL HISTORY: Recenty injured CT cervical spine without contrast Comparison: None Findings: Normal limited view of the intracranial contents. Soft tissues of the neck are normal. Lung apices are normal. Normal vertebral body alignment. No fractures or dislocations. No significant degenerative change. Impression: 1. No cervical vertebral fracture or traumatic malalignment. This document has been electronically signed by: Gabriel Umaña MD on 07/05/2025 17:48:43
[2025-07-03 17:10] VITALS: BP 132/74; PULSE 97; RESP 18; TEMP 36.6; O2SAT 98; BMI 23.1
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
[2025-07-03 18:23] LABS: MANUAL DIFF FLAG NO
--- NOTE | 2025-07-03 18:24 | PC.NURSE ---
Pt identifies as Thais and a Male. He arrives with security angry for being placed in the behavioral POD, he attempted to talk to care team and beg to be let out. he became tearful and denied being evicted or having an unkept living space. Once the process was explained to him he was cooperative with obtaining urine and blood work. he is aware he is waiting for results. he denies SI/HI/AVH. He eats dinner and continues to ask to go home and states I do not belong here Pt has a few scratches to both forearms done by finger nails.
[2025-07-03 18:36] LABS: Appearance Urine Cloudy; Glucose Urine UA Negative (Negative); Hematocrit 43.9 % (37.0-47.0); Hemoglobin 15.5 g/dl (12.0-16.0); Imm Gran Abs Auto 0.04 X10*3/uL (0.00-0.03); Imm Gran Pct Auto 0.5 % (0.0-0.4); Lymphocytes Absolute Auto 2.6 X10*3/uL (1.2-4.9); Mean Corpuscular HGB Conc 35.3 g/dl (31.0-35.0); Mean Corpuscular Hemoglobin 31.3 pg (27.0-33.0); Mean Corpuscular Volume 88.7 fL (80.0-98.0); NRBC Abs Auto 0.000 X10*3/uL (0.0-0.012); NRBC Pct Auto 0.0 /100WBC (0.0-0.2); PH 5.5 (5.0-9.0); Platelet Count 314 X10*3/uL (160-400); Red Blood Count 4.95 X10*6/uL (4.20-5.50); Specific Gravity - Urine 1.015 (1.005-1.025); UMIC TRIGGER UACC YES; White Blood Count 8.9 X10*3/uL (4.8-10.8)
[2025-07-03 18:37] LABS: UPreg QC Valid YES
[2025-07-03 18:42] LABS: Cannabinoid Screen Urine POSITIVE (Not Detect)
[2025-07-03 19:15] LABS: Alanine Aminotransferase 28 U/L (0-31); Albumin Level 5.4 g/dL (3.5-5.0); Alkaline Phosphatase 89 U/L (39-117); Anion Gap 14 (12-20); Aspartate Amino Transferase 33 U/L (5-31); Blood Urea Nitrogen 12 mg/dL (9-16); Calcium 10.3 mg/dL (8.4-10.2); Carbon Dioxide 26 mmol/L (22-29); Chloride 109 mmol/L (96-108); Creatinine Clr Calc Pharmacy 82.4; Estimated Glomerular Filt Rate > 60; Potassium 4.2 mmol/L (3.3-5.1); Sodium 145 mmol/L (135-145); Total Protein 8.3 g/dL (6.5-8.0)
--- NOTE | 2025-07-03 19:32 | PC.NURSE ---
Assumed care at 1845. Presents as cooperative with delusional thought processes. Provided items to shower. Provided liquids/food. 15 minute safety checks ongoing. Plan for medical clearance/CARE Team.
--- NOTE | 2025-07-03 20:40 | PC.NURSE ---
Patient c/o 5/10 pain to bilateral knees and headache. Could not recall recent injury to this area. MD Taylor made aware, x1 PRN order for 650mg Tylenol obtained/administered, pending effectiveness. Denies SI/HI/AVH. Continues to make needs known appropriately. Currently taking space in room. No further complaints/concerns. 15 minute safety checks ongoing. Plan of care ongoing.
[2025-07-04] MEDS: OLANZapine 10 MG VIAL IM (08:45)
[2025-07-04] MEDS: diazePAM 10 MG/2 ML CARTRIDGE 5 MG IM (09:01)
--- NOTE | 2025-07-04 09:04 | PC.NURSE ---
Pt was restrained in 4pt Velcro restraints and was able to release herself out of them. Security present to place her back into restraints based on her continued uncontrolled behaviors. She was kicking at staff, continues to scream obscenities and be verbally aggressive with staff. Pt attempts to bite, grab and pinch staff. During first restraint application she was placed in a spit calabrese to protect staff. She was administered another dose of medication.
[2025-07-04 09:30] VITALS: BP 135/70; PULSE 77; RESP 20; O2SAT 98
[2025-07-04 10:00] VITALS: BP 110/60; PULSE 67; RESP 18; O2SAT 100
--- NOTE | 2025-07-04 12:53 | PC.NURSE ---
Mother at the bedside visiting who brought a large Duffle bag(blue) that was inventoried by security. Items- clothing, sketch pad and sealed food items.
--- NOTE | 2025-07-04 14:05 | MHC.EDTECH ---
Patient was very upset when mom came to visit. Yelling at mom calling her names. She was calling the nurse and LOG PEELER names as well. Panic button was pressed just because she was getting really agitated. Mom left and patient went to take a shower then after went I upstairs
--- NOTE | 2025-07-04 14:11 | PC.NURSE ---
Pt after being seen by NATURE PHOTOGRAPHER for IPLOC she is angry and yelling due to her mother being asked to step out for the evaluation. Pt is passive and disrespectful throughout the conversation. Pt takes a shower after and agrees to take Rx. meds from the NATURE PHOTOGRAPHER. Report is given to M5 pt verbalizes awareness to going IP.
[2025-07-04 15:20] VITALS: BP 108/62; PULSE 61; RESP 14; TEMP 2.4; TEMP 36.4; O2SAT 100
[2025-07-04 15:38] VITALS: BMI 22.6
[2025-07-04] MEDS: Nicotine 21 MG PATCH.TD24 TRANSDERMA (15:44)
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
[2025-07-04 19:49] VITALS: BP 110/86; PULSE 75; RESP 16; TEMP 36.4; O2SAT 98
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
--- NOTE | 2025-07-05 | ECG_ITS ---
Test Reason : On antipyschotic meds. Received multple meds Blood Pressure : */* mmHG Vent. Rate : 86 BPM Atrial Rate : 86 BPM P-R Int : 140 ms QRS Dur : 74 ms QT Int : 388 ms P-R-T Axes : 65 45 40 degrees QTcB Int : 464 ms Normal sinus rhythm Normal ECG No previous ECGs available Referred By: Carmen Anne Electronically Signed By: DERICK PETTIT
[2025-07-05 08:00] VITALS: BP 114/62; PULSE 78; RESP 16; TEMP 36.3; O2SAT 98
[2025-07-05 08:25] LABS: Cholesterol 153 mg/dL (<200); HDL Cholesterol 60 mg/dL (>40); Magnesium 2.0 mg/dL (1.6-2.6); Triglycerides 66 mg/dL (<150)
[2025-07-05 08:40] LABS: Free T4 (Free Thyroxine) 0.96 ng/dL (0.71-1.85); Thyroid Stimulating Hormone 8.69 uIU/mL (0.32-4.0)
[2025-07-05 08:52] LABS: Folate 5.6 ng/mL (> or = 4.0); Vitamin B12 310 pg/mL (200-900)
[2025-07-05] MEDS: Nicotine 21 MG PATCH.TD24 TRANSDERMA (09:26)
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
--- NOTE | 2025-07-05 10:54 | HO.PSYEVENT ---
Documented by User: Carmen Anne NP 07/05/25 22:29 Event Note Date of Service: 07/05/25 Psych Restraint Event Note: Patient had a visit for about 10 mins, then started agitated and reports their brother was yelling at them. Staff intervenes, patient got agitated, yelling/screaming loudly in the smith, disruptive behavior on unit. Making threats and charting at RN. Security called to support, patient became aggressive toward security. Physical hold stated at 1032 and proceed to R/S chair by 1035 as patient was not able to respond with verbal redirection. Continue to agitated, and appeared to get triggered more by Security staff, crying, yelling, want to get out of R/S chair while not able to demonstrate calm behavior. Agreed to take PO medication: given PO Haldol 10mg, Ativan 2mg and Benadryl 50 x1. This provider face to face assessed patient at 1038. Not able to get much of information d/t agitation. Per nursing patient reports left elbow pain d/t R/S yesterday down in ED pod. Requested again to be evaluated by MD. Consult placed: pending result Nursing continue to monitor and provide emotional support, monitor for vital signs. Nursing to Release patient once able to demonstrate calm, safe behavior. Contact provider if there is any safety concerns. Time Spent With Patient Time: Total time managing care of this patient today ____ minutes. Documented by User: Aiden Cordova MD 07/06/25 11:18 Event Note Date of Service: 07/06/25
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
--- NOTE | 2025-07-06 05:12 | PM.EVENT ---
Event Note Date of Service: 07/06/25 Event Note: Pt experienced a fall earlier on day shift, 07/05/25. All scans reviewed including CT head, Neck, knees and elbow and all are negative for any acute findings. Time Spent With Patient Time: Total time managing care of this patient today ____ minutes.
[2025-07-06 08:00] VITALS: RESP 18
[2025-07-06] MEDS: Nicotine 21 MG PATCH.TD24 TRANSDERMA (08:21)
[2025-07-06] MEDS: Lidocaine 4 % Patch ADH..PATCH 2 PATCH TRANSDERMA (08:25)
[2025-07-06 19:57] VITALS: RESP 14
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
[2025-07-07] MEDS: Nicotine 21 MG PATCH.TD24 TRANSDERMA (08:48)
[2025-07-07] MEDS: Lidocaine 4 % Patch ADH..PATCH 2 PATCH TRANSDERMA ×2 (08:51→10:49)
[2025-07-07 09:04] VITALS: BP 120/60; PULSE 74; RESP 14; TEMP 36.9; O2SAT 100
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
[2025-07-07 20:00] VITALS: RESP 16
--- NOTE | 2025-07-08 07:21 | PC.NURSE ---
Pt ambulated to the nurse's station to request the Levothyroxine and Tylenol for a headache 03/16.
[2025-07-08 08:42] VITALS: BP 114/67; PULSE 66; RESP 18; TEMP 36.8; O2SAT 100
[2025-07-08] MEDS: Nicotine 21 MG PATCH.TD24 TRANSDERMA (08:52)
[2025-07-08] MEDS: Lidocaine 4 % Patch ADH..PATCH 2 PATCH TRANSDERMA (08:54)
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
[2025-07-08 20:00] VITALS: BP 121/70; PULSE 80; RESP 20; TEMP 36.9; O2SAT 97
[2025-07-09 08:00] VITALS: BP 123/80; PULSE 73; RESP 16; TEMP 36.9; O2SAT 98
[2025-07-09] MEDS: Nicotine 21 MG PATCH.TD24 TRANSDERMA (08:43)
[2025-07-09] MEDS: Lidocaine 4 % Patch ADH..PATCH 2 PATCH TRANSDERMA ×2 (08:45→10:33)
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
--- NOTE | 2025-07-09 14:55 | PC.NURSE ---
Late entry; restraint. Following the events described in the nurse note by Ashtyn Hucthinson on 07/05, security arrived on the unit. It was reported that the pt called one member or staff 'piggie' and shortly thereafter security staff went hands on at 10:32, bringing the patient to the floor in the hallway. The patient was transferred into the restraint chair at 10:35 and wheeled to 505. I personally provided continuous monitoring remaining 1:1 with the patient within arms reach and checking vital signs q15 minutes. When Thais calmed I began releasing restraints one by one at 11:15. Thais was fully released by 11:20 and remained in adequate behavioral control for the rest of the shift.
--- NOTE | 2025-07-10 00:47 | PC.NURSE ---
Late entry: for July 06, 2025. Patient was given Levothyroxine 125 mcg at 0650, 07/06/25.
[2025-07-10 07:00] VITALS: BMI 23.9
[2025-07-10 08:00] VITALS: BP 95/53; PULSE 71; RESP 14; TEMP 2.7; TEMP 36.9; O2SAT 98
[2025-07-10] MEDS: Nicotine 21 MG PATCH.TD24 TRANSDERMA (08:33)
[2025-07-10] MEDS: Lidocaine 4 % Patch ADH..PATCH 2 PATCH TRANSDERMA (10:46)
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
[2025-07-10 20:00] VITALS: BP 109/55; PULSE 71; RESP 18; TEMP 36.4; O2SAT 97
[2025-07-11 08:00] VITALS: BP 109/62; PULSE 60; RESP 16; TEMP 36.6; O2SAT 100
[2025-07-11] MEDS: Nicotine 21 MG PATCH.TD24 TRANSDERMA (08:46)
[2025-07-11] MEDS: Lidocaine 4 % Patch ADH..PATCH 2 PATCH TRANSDERMA (10:11)
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
[2025-07-11 13:05] LABS: Resp Syncy Virus RNA Qual PCR NEGATIVE (Negative); SARS COV2 PCR INHOUSE NEGATIVE (Negative)
[2025-07-11 20:00] VITALS: RESP 20
[2025-07-12 08:00] VITALS: BP 109/69; PULSE 69; RESP 18; TEMP 36.9; O2SAT 98
[2025-07-12] MEDS: Nicotine 21 MG PATCH.TD24 TRANSDERMA (08:01)
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
[2025-07-12] MEDS: Lidocaine 4 % Patch ADH..PATCH 2 PATCH TRANSDERMA (10:33)
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
[2025-07-13 08:00] VITALS: BP 96/54; PULSE 65; RESP 20; TEMP 36.9; O2SAT 99
[2025-07-13] MEDS: Nicotine 21 MG PATCH.TD24 TRANSDERMA (08:39)
[2025-07-13] MEDS: Lidocaine 4 % Patch ADH..PATCH 2 PATCH TRANSDERMA (09:56)
--- NOTE | 2025-07-14 | ECG_ITS ---
Test Reason : QTC Blood Pressure : */* mmHG Vent. Rate : 80 BPM Atrial Rate : 80 BPM P-R Int : 146 ms QRS Dur : 76 ms QT Int : 386 ms P-R-T Axes : 73 55 45 degrees QTcB Int : 445 ms Normal sinus rhythm Normal ECG When compared with ECG of 05-Jul-2025 17:38, No significant change was found Referred By: Harry Eller Electronically Signed By: GALEN CORLEY MD
[2025-07-14 08:00] VITALS: BP 110/53; PULSE 70; RESP 16; TEMP 37; O2SAT 97
[2025-07-14] MEDS: Nicotine 21 MG PATCH.TD24 TRANSDERMA (08:52)
--- NOTE | 2025-07-14 09:13 | P.DS_ITS ---
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 without any SI or HI. Patient has improved insight and judgment and wants to continue treatment. Patient is not in imminent risk of harm to self or others and has a safety plan that includes presenting to the closest ER or calling 911 if feeling unsafe.? Patient has been observed closely by nursing and unit staff throughout admission; patient has not engaged in any behaviors that suggest dangerousness to self or others and has demonstrated appropriate behaviors and impulse control Discharge Date/Time: 07/14/25 10:32
--- NOTE | 2025-07-14 10:30 | PC.NURSE ---
Shift Review, Patient alert and orientated x3. Patient was ordered a EKG, and provider to d/c. Patient anxious and excieted. Pt denies SI/HI/AH/VH. Pt rates anxiety 4/5 and depression 5/6. LBM 07/14/25. Pt walked down ([facility] [place] to Mom who will be transporting pt. Belongings and valuables including meds given
== END 2025-07-14 10:32 | disposition home or self-care (01) | DRG 885 ==
LOC: HO.ED 07-04 07:47 → HO.PM5 07-04 12:24
PROVIDERS: Registered Nurse Emergency; Admitting Provider Clinical Nurse Specialist Psychiatric/Mental Health, Adult; Emergency Provider Emergency Medicine; Visit Provider Psychiatry & Neurology Psychiatry
DX: F20.81 Schizophreniform disorder (principal); F17.210 Nicotine dependence, cigarettes, uncomplicated; Z71.6 Tobacco abuse counseling; Z78.1 Physical restraint status; Z20.822 Contact with and (suspected) exposure to COVID-19; Z79.890 Hormone replacement therapy; Z79.899 Other long term (current) drug therapy
CPT/HCPCS: 36415; 70450; 72125; 73070; 73560; 73610; 80053; 80061; 80307; 81001; 81003; 81025; 82607; 82746; 83036; 83735; 84439; 84443; 84702; 85025; 87637; 93005; 99285; J1200; J2359; J3360; S9485

== ENCOUNTER 2025-07-04 12:09 | Outpatient (BNV) | payer MEDICARE, SELFPAY | END 2025-07-05 17:38 | PROVIDERS: Admitting Provider Clinical Nurse Specialist Psychiatric/Mental Health, Adult; Emergency Provider Emergency Medicine; Visit Provider Internal Medicine | DX: Z13.6 Encounter for screening for cardiovascular disorders (principal) | CPT/HCPCS: 93010 ==

== ENCOUNTER 2025-07-04 12:09 | Outpatient (BNV) | payer MEDICARE, SELFPAY | END 2025-07-14 09:32 | PROVIDERS: Admitting Provider Clinical Nurse Specialist Psychiatric/Mental Health, Adult; Emergency Provider Emergency Medicine; Visit Provider Internal Medicine Cardiovascular Disease | DX: Z13.6 Encounter for screening for cardiovascular disorders (principal) | CPT/HCPCS: 93010 ==

== ENCOUNTER → 2025-07-04 12:09 | Outpatient (BNV) | payer MEDICARE, SELFPAY | PROVIDERS: Admitting Provider Clinical Nurse Specialist Psychiatric/Mental Health, Adult; Emergency Provider Emergency Medicine; Visit Provider Nurse Practitioner Psychiatric/Mental Health | DX: F33.3 Major depressive disorder, recurrent, severe with psychotic symptoms (principal); E07.9 Disorder of thyroid, unspecified; R46.89 Other symptoms and signs involving appearance and behavior | CPT/HCPCS: 90792; 99232; 99499 ==